=== PATIENT | female | born 1985 | race Caucasian/White ===

== ENCOUNTER → 2018-01-06 09:04 | Outpatient (CLI) | payer OTHER, SELFPAY ==
[2018-01-06 12:03] LABS: Hematocrit 37.2 % (37-47); Hemoglobin 12.5 g/dl (12.0-15.0); Mean Corp Hgb Conc 33.6 g/gl (32-36); Mean Corpuscular Hgb 32.5 pg (27.0-32.0); Mean Corpuscular Volume 96.6 fL (81-99); Mean Platelet Vol. 11.4 fl (6.2-12.0); Platelet Count 139 K/mm3 (150-450); RBC Distribution Width SD 44.1 fl (35.1-43.9); Red Blood Count 3.85 M/mm3 (4.2-5.4); Scan Indicated on CBC? Y/N NO; White Blood Count 7.3 K/mm3 (4.4-11.0)
[2018-01-06 12:07] LABS: Glucose Challenge Gest 1H 50g 106 mg/dL (70-140)
== END ==
PROVIDERS: Visit Provider Obstetrics & Gynecology
DX: Z34.83 Encounter for supervision of other normal pregnancy, third trimester (principal)
CPT/HCPCS: 36415; 82950; 85027

== ENCOUNTER → 2018-02-21 14:11 | Outpatient (CLI) | payer OTHER, SELFPAY ==
[2018-02-21 15:51] LABS: Platelet Count 144 K/mm3 (150-450)
[2018-02-21 18:30] LABS: Group B Strep DNA By PCR POSITIVE (Negative); Probe Check PASS
== END ==
PROVIDERS: Visit Provider Obstetrics & Gynecology
DX: Z36.85 Encounter for antenatal screening for Streptococcus B (principal)
CPT/HCPCS: 36415; 85049; 87653

== ENCOUNTER → 2018-03-22 14:46 | Outpatient (CLI) | payer OTHER, SELFPAY ==
[2018-03-22 15:19] LABS: ROM Internal Control Test YES-OK TO RESULT pt. (Internal QC)
[2018-03-22 15:20] LABS: ROM Patient Test POSITIVE (Negative)
== END ==
PROVIDERS: Visit Provider Obstetrics & Gynecology
DX: Z34.83 Encounter for supervision of other normal pregnancy, third trimester (principal)
CPT/HCPCS: 84112

== ENCOUNTER 2018-03-22 18:55 | Inpatient (IN) | payer OTHER, SELFPAY ==
[2018-03-22] MEDS: Lactated Ringers 1,000 ML 50 ML IV (19:34)
[2018-03-22 19:57] LABS: Hematocrit 39.3 % (37-47); Hemoglobin 13.2 g/dl (12.0-15.0); Mean Corp Hgb Conc 33.6 g/gl (32-36); Mean Corpuscular Hgb 31.7 pg (27.0-32.0); Mean Corpuscular Volume 94.5 fL (81-99); Mean Platelet Vol. 11.1 fl (6.2-12.0); Platelet Count 125 K/mm3 (150-450); RBC Distribution Width CV 13.6 % (11.6-14.6); RBC Distribution Width SD 46.7 fl (35.1-43.9); Red Blood Count 4.16 M/mm3 (4.2-5.4); White Blood Count 8.3 K/mm3 (4.4-11.0)
[2018-03-22 20:01] LABS: Scan Indicated on CBC? Y/N NO
[2018-03-22 20:16] VITALS: BMI 30.4
[2018-03-22] MEDS: Oxytocin 30 units/NS 500 ml 30 UNITS/500 ML IV.SOLN IV (22:44)
[2018-03-22] MEDS: Acetaminophen 325 MG Tablet PO (22:51)
[2018-03-23] MEDS: Lactated Ringers 1,000 ML 50 ML IV ×4 (01:10→18:26)
--- NOTE | 2018-03-23 07:16 | PCM.PN.OB ---
Subjective: Feeling contractions strongly now. Pitocin at 10mu/min Objective: Afeb VSS. FHR tracing Cat 1. - Physical Exam General: Alert, Oriented x3, Cooperative, No apparent distress Abdomen: Soft, Non Tender, Non-Distended, Gravid, Appropriate for Gestational Age, - - Palpable contractions present Extremities: No edema Neurological: Neuro grossly intact Psych/Mental Status: Normal Affect Comment: CE 01/22/ Weight: 172 lb Body Mass Index (BMI) 30.4 Laboratory Tests Past 24 Hrs 03/22/18 03/22/18 19:34 19:34 WBC 8.3 RBC 4.16 L Hgb 13.2 Hct 39.3 MCV 94.5 MCH 31.7 MCHC 33.6 RDW 13.6 RDW Differential 46.7 H Plt Count 125 L MPV 11.1 Blood Type O POSITIVE Antibody Screen NEGATIVE Medical Necessity - Tobacco Use Smoking Status: Never smoker Assessment/Plan IUPC placed to better monitor contraction pattern and strength. heart rate tracing reassuring. Continue pitocin. Watch for signs of chorioamnionitis as ruptured >24 hours. Ampicillin prophylaxis has been ordered. Watch labor progress.
--- NOTE | 2018-03-23 07:22 | PCM.PN.BLA ---
Progress Note LABOR PROGRESS NOTE Comfortable, replies contractions are mild. No complaints. Test dose of epidural just completed. AVSS GEN - NAD, AAO x 3 FHR 130, moderate variability, + accelerations, no decelerations TOCO 4/10 min SVE deferred, last exam /-3 A/P: 32yo @ 39.3wga with PROM, IOL on pitocin, TOLAC, Cat I FHR -Labor course reviewed, pitocin at 10mu/min as per Dr. Mohr - status reassuring -Will continue pitocin as tolerated by mother and fetus to adequacy, reviewed with patient and 24 hours pitocin induction without cervical change advisable prior to determining need for section for failed induction. Also discussed alternative for section sooner than that time given prior history of section. Discussed increased risk for infection given prolonged rupture of membranes, however, again, that alone is not indication for section in absence of other indications. Patient and report understanding, considering options. If desires to labor further, will plan for section approximately 10-11pm (24 hours after induction started) if no change.
--- NOTE | 2018-03-23 09:46 | PCM.PN.BLA ---
Progress Note LABOR PROGRESS NOTE Contractions becoming more intense and has more gushing of fluid. AVSS, breathing through contractions GEN - NAD, AAO x 3 FHR 130, moderate variability, + accelerations, no decelerations TOCO 5/10 min, MVU >200 SVE deferred A/P: 32yo @ 39 3/7wga in latent labor, TOLAC, Cat I FHR on pitocin -Maternal and statuses reassuring -Continue pitocin as tolerated by mother and fetus -Continue Ampicillin for prolonged rupture of membranes
[2018-03-23] MEDS: fentaNYL-bupivacaine (epidural) 100 ML BAG EPIDURAL (10:03)
[2018-03-23] MEDS: 0.9% Saline Lock 10 ML Syringe IV ×2 (16:45→22:45)
[2018-03-23] MEDS: Acetaminophen 325 MG Tablet PO (18:25)
[2018-03-23] MEDS: Methylergonovine 0.2 MG/ML Ampul IM (19:47)
[2018-03-23] MEDS: Oxytocin 30 units/NS 500 ml 30 UNITS/500 ML IV.SOLN 334 UNITS IV (19:47)
[2018-03-23] MEDS: Oxytocin 30 units/NS 500 ml 30 UNITS/500 ML IV.SOLN 167 UNITS IV (20:05)
--- NOTE | 2018-03-23 20:33 | PCM.OB.VAG ---
Vaginal Delivery Maternal Presentation: Active Labor Amniotic Membrane Rupture Type: Spontaneous at home Amniotic Fluid Description: Clear Final PRISCILLA: 03/27/18 Final PRISCILLA Source: US <20 weeks Gestational age: 39 Weeks and 3 Days Date of Procedure: 03/23/18 Pre-Operative Diagnosis: IUP, Post-Operative Diagnosis: IUP, Surgery/ Procedure Performed: Spontaneous Vaginal Delivery, Vacuum Assisted Vaginal Delivery Type of Anesthesia: Epidural Description of Procedure: Spontaneous vaginal delivery after of a viable female with Apgars of 8/9 with a normal three-vessel placenta and cord around the neck ?1 loose in a double set up in the room. No episiotomy. First-degree midline laceration and bilateral vaginal sulcal tears approximately custodial up the vagina all repaired with 3-0 repeat suture under epidural. Kiwi vacuum used ?4 gentle pulls from low outlet to expedite delivery of the head due to variable late decelerations and increasing tachycardia. No pop offs. Sponges okay. Delivery physician: Nilson Gonzalez MD. Presentation: Vertex Placental Delivery Description: Spontaneous Placenta Disposition: [facility] Cord Vessel Description: 3 Vessels Cord Gases drawn per routine: ABG Cord Entanglement: Around neck x 1, loose Estimated Blood Loss: 450 cc Infant A gender: Female (1 minute): 8 (5 minute): 9 Episiotomy Description: None Laceration: Midline, Perineal Extension/lac, Vaginal Extension/lac, 1st degree Medications given after delivery: IV Pitocin, IM Methergin Complications: None
--- NOTE | 2018-03-23 20:41 | OP.PCM_ITS ---
Vaginal Delivery Maternal Presentation: Active Labor Amniotic Membrane Rupture Type: Spontaneous at home Amniotic Fluid Description: Clear Final PRISCILLA: 03/27/18 Final PRISCILLA Source: US <20 weeks Gestational age: 39 Weeks and 3 Days Date of Procedure: 03/23/18 Pre-Operative Diagnosis: IUP, Post-Operative Diagnosis: IUP, Surgery/ Procedure Performed: Spontaneous Vaginal Delivery, Vacuum Assisted Vaginal Delivery Type of Anesthesia: Epidural Description of Procedure: Spontaneous vaginal delivery after of a viable female with Apgars of 8/9 with a normal three-vessel placenta and cord around the neck ?1 loose in a double set up in the room. No episiotomy. First-degree midline laceration and bilateral vaginal sulcal tears approximately fpc up the vagina all repaired with 3-0 repeat suture under epidural. Kiwi vacuum used ?4 gentle pulls from low outlet to expedite delivery of the head due to variable late decelerations and increasing tachycardia. No pop offs. Sponges okay. Delivery physician: Nilson Gonzalez MD. Presentation: Vertex Placental Delivery Description: Spontaneous Placenta Disposition: [facility] Cord Vessel Description: 3 Vessels Cord Gases drawn per routine: ABG Cord Entanglement: Around neck x 1, loose Estimated Blood Loss: 450 cc Infant A gender: Female (1 minute): 8 (5 minute): 9 Episiotomy Description: None Laceration: Midline, Perineal Extension/lac, Vaginal Extension/lac, 1st degree Medications given after delivery: IV Pitocin, IM Methergin Complications: None
--- NOTE | 2018-03-23 20:41 | PCM.DCVAG ---
Discharge Diet: No Restrictions Discharge Activity: May Shower, May Take a Tub Bath May resume sexual activity in: 4-6 weeks Additional Activity Instructions:: Nothing in the vagina for 4-6 weeks. You may return to work/school in 6 weeks. Call your doctor if you observe: Fever of 101 or Higher, Inability to urinate, Inability to have a bowel movement, Using more than one pad per hour Additional Instructions: If you experience any of the following, contact your healthcare provider. Bleeding that soaks a pad every hour for 2 hours Unrelieved incision or abdominal pain Swelling, redness, discharge or bleeding from your incision or episiotomy site Your incision begins to separate Problems urinating (including inability to urinate or burning while urinating). Visual changes Severe headache Flu-like symptoms Pain or redness in one of both of your breasts Pain, warmth, tenderness or swelling in your legs, especially the calf area Frequent nausea and vomiting Symptoms of depression or anxiety If you experience any of the following, call 911 or go to the nearest Emergency Room. Chest pain Problems breathing Seizure activity Partial or complete paralysis of a body part, slurred speech, weakness or drooping of the face, or a sudden inability to walk or hold your balance Allergies/Adverse Reactions: Allergies No Known Allergies Allergy (Verified 03/22/18 20:17) Medications to take at Discharge Tablet 1 PO DAILY 03/22/18 Probiotic PRN 03/22/18 Vitamin D3 PRN 03/22/18 Please Follow Up With: Kalie Mendez MD - [phone] When: Call to make an appointment with your doctor in 6 weeks. Primary Care Physician: Shira Esquivel NP-C [Primary Care Provider] -
--- NOTE | 2018-03-23 20:43 | DCINST_ITS ---
Discharge Diet: No Restrictions Discharge Activity: May Shower, May Take a Tub Bath May resume sexual activity in: 4-6 weeks Additional Activity Instructions:: Nothing in the vagina for 4-6 weeks. You may return to work/school in 6 weeks. Call your doctor if you observe: Fever of 101 or Higher, Inability to urinate, Inability to have a bowel movement, Using more than one pad per hour Additional Instructions: If you experience any of the following, contact your healthcare provider. * Bleeding that soaks a pad every hour for 2 hours * Unrelieved incision or abdominal pain * Swelling, redness, discharge or bleeding from your incision or episiotomy site * Your incision begins to separate * Problems urinating (including inability to urinate or burning while urinating) . * Visual changes * Severe headache * Flu-like symptoms * Pain or redness in one of both of your breasts * Pain, warmth, tenderness or swelling in your legs, especially the calf area * Frequent nausea and vomiting * Symptoms of depression or anxiety If you experience any of the following, call 911 or go to the nearest Emergency Room. * Chest pain * Problems breathing * Seizure activity * Partial or complete paralysis of a body part, slurred speech, weakness or drooping of the face, or a sudden inability to walk or hold your balance Allergies/Adverse Reactions: Allergies No Known Allergies Allergy (Verified 03/22/18 20:17) Medications to take at Discharge Tablet 1 PO DAILY 03/22/18 Probiotic PRN 03/22/18 Vitamin D3 PRN 03/22/18 Please Follow Up With: Kalie Mendez MD - [phone] When: Call to make an appointment with your doctor in 6 weeks. Primary Care Physician: Shira Esquivel NP-C [Primary Care Provider] -
[2018-03-24] VITALS: BP 117/55; PULSE 75; RESP 18; TEMP 36.9; O2SAT 97
[2018-03-24] MEDS: Ibuprofen 600 MG Tablet PO ×4 (00:19→20:28)
[2018-03-24 05:00] VITALS: BP 125/63; PULSE 75; RESP 18; TEMP 36.7
[2018-03-24 05:28] LABS: Hematocrit 31.1 % (37-47); Hemoglobin 10.4 g/dl (12.0-15.0); Mean Corp Hgb Conc 33.4 g/gl (32-36); Mean Corpuscular Volume 95.7 fL (81-99); Mean Platelet Vol. 11.1 fl (6.2-12.0); Platelet Count 115 K/mm3 (150-450); RBC Distribution Width CV 13.8 % (11.6-14.6); RBC Distribution Width SD 48.1 fl (35.1-43.9); Red Blood Count 3.25 M/mm3 (4.2-5.4); Scan Indicated on CBC? Y/N NO
--- NOTE | 2018-03-24 07:54 | PCM.PN.OB ---
Subjective: No issues overnight. She notes clusterfed overnight and is nursing well. Viridiana is sore, denies heavy lochia. Objective: AVSS - Physical Exam General: Alert, Oriented x3, Cooperative, No apparent distress HEENT: Atraumatic, Normocephalic Lungs: Clear to auscultation, Normal air movement Cardiovascular: Regular rate, Regular Rhythm, Normal S1, Normal S2 Abdomen: Soft, Non Tender, Non-Distended, - - Fundus firm and nontender at umbilicus, lochia moderate Extremities: No edema, No Calf Tenderness Neurological: Neuro grossly intact Psych/Mental Status: Normal Affect, Appropriate, Alert and oriented to time, place, person, mood and affect Vital Signs Temp Pulse Resp BP Pulse Ox 98.0 F 75 18 125/63 H 97 03/24/18 05:00 03/24/18 05:00 03/24/18 05:00 03/24/18 05:00 03/24/18 00:00 Oxygen Delivery Method Room Air Weight: 78.018 kg Body Mass Index (BMI) 30.4 Intake and Output for Last 24 Hours 03/22/18 03/23/18 03/24/18 23:59 23:59 23:59 Intake Total 4769 / 4769 1400 / 1400 Output Total 2450 / 2450 1400 / 1400 Balance 2319 / 2319 0 / 0 Laboratory Tests Past 24 Hrs 03/24/18 05:00 WBC 17.0 H RBC 3.25 L Hgb 10.4 L Hct 31.1 L MCV 95.7 MCH 32.0 MCHC 33.4 RDW 13.8 RDW Differential 48.1 H Plt Count 115 L MPV 11.1 Medical Necessity - Tobacco Use Smoking Status: Never smoker Assessment/Plan 32yo PPD#1 s/p Vacuum assisted doing well. -O positive - -Routine care
[2018-03-24] MEDS: Acetaminophen 500 MG Tablet 1000 MG PO (11:15)
[2018-03-24 13:37] VITALS: BP 113/44; PULSE 70; RESP 16; TEMP 36.7; O2SAT 97
[2018-03-24 18:00] VITALS: BP 112/44; PULSE 85; RESP 16; TEMP 37; O2SAT 96
[2018-03-24 20:30] VITALS: BP 120/64; PULSE 86; RESP 16; TEMP 37.2
[2018-03-25 02:05] VITALS: BP 108/61; PULSE 80; RESP 20; TEMP 36.9
[2018-03-25] MEDS: Acetaminophen 500 MG Tablet 1000 MG PO ×2 (02:16→14:11)
[2018-03-25 09:06] VITALS: BP 109/55; PULSE 66; RESP 16; TEMP 36.7; O2SAT 100
--- NOTE | 2018-03-25 10:45 | PCM.PN.OB ---
Subjective: Patient without complaints. Doing well. Minimal vaginal bleeding. Ready to go home. - Physical Exam Vital Signs AF, VSS Temp Pulse Resp BP Pulse Ox 98.0 F 66 16 109/55 L 100 03/25/18 09:06 03/25/18 09:06 03/25/18 09:06 03/25/18 09:06 03/25/18 09:06 Oxygen Delivery Method Room Air Weight: 172 lb Body Mass Index (BMI) 30.4 Intake and Output for Last 24 Hours 03/23/18 03/24/18 03/25/18 23:59 23:59 23:59 Intake Total 4769 / 4769 1400 / 1400 Output Total 2450 / 2450 1400 / 1400 Balance 2319 / 2319 0 / 0 Medical Necessity - Tobacco Use Smoking Status: Never smoker Assessment/Plan Doing well. Will release to home with routine instructions.
[2018-03-25] MEDS: Ibuprofen 600 MG Tablet PO (11:01)
[2018-03-25 13:24] VITALS: BP 115/61; PULSE 91; RESP 16; TEMP 36.7; O2SAT 99
== END 2018-03-25 14:45 | disposition home or self-care (01) | DRG 775 ==
PROVIDERS: Obstetrics & Gynecology; Admitting Provider Obstetrics & Gynecology; Family Provider Nurse Practitioner Family; PCP Nurse Practitioner Family; Visit Provider Obstetrics & Gynecology
DX: O34.219 Maternal care for unspecified type scar from previous cesarean delivery (principal); O99.824 Streptococcus B carrier state complicating childbirth; O42.12 Full-term premature rupture of membranes, onset of labor more than 24 hours following rupture; O76 Abnormality in fetal heart rate and rhythm complicating labor and delivery; O70.0 First degree perineal laceration during delivery; O69.81X0 Labor and delivery complicated by cord around neck, without compression, not applicable or unspecified; Z3A.39 39 weeks gestation of pregnancy; Z37.0 Single live birth
CPT/HCPCS: 59025; 59050; 85027; 86850; 86900; 99218; J7120; A4216; G0378; J0290

== ENCOUNTER → 2018-04-07 13:53 | Outpatient (CLI) | payer OTHER, SELFPAY | PROVIDERS: Family Provider Nurse Practitioner Family; PCP Nurse Practitioner Family; Visit Provider Obstetrics & Gynecology | DX: R30.0 Dysuria (principal); R52 Pain, unspecified | CPT/HCPCS: 87086; 87088 ==

== ENCOUNTER → 2018-05-15 15:46 | Outpatient (CLI) | payer OTHER, SELFPAY ==
[2018-05-15 17:49] LABS: Platelet Count 173 K/mm3 (150-450)
== END ==
PROVIDERS: Visit Provider Obstetrics & Gynecology
DX: D69.6 Thrombocytopenia, unspecified (principal)
CPT/HCPCS: 36415; 85049

== ENCOUNTER → 2020-07-15 | Outpatient (CLI) | payer OTHER, SELFPAY ==
[2020-07-18 16:30] LABS: HPV APTIMA, High Risk Negative (Negative)
== END | disposition home or self-care (01) ==
PROVIDERS: PCP Nurse Practitioner Family; Visit Provider Obstetrics & Gynecology
DX: Z12.4 Encounter for screening for malignant neoplasm of cervix (principal)
CPT/HCPCS: 87624; 88175; G0145

== ENCOUNTER → 2021-09-17 09:35 | Outpatient (CLI) | payer OTHER, SELFPAY ==
--- NOTE | 2021-09-17 09:38 | BI_ITS ---
MAMMOGRAPHY - BILATERAL DIAGNOSTIC REASON FOR EXAM: Female, 35 years old. Six-month history of a left breast lump at the central deep lateral aspect of the left breast. PERTINENT HISTORY: Non-contributory. TECHNIQUE: Digital bilateral breast [place] (3D mammographic acquisition) in the CC and MLO projections. 2-D mediolateral oblique (MLO) and craniocaudad (CC) views of both breasts were obtained. CAD: Full Field Digital Mammography with Computer Added Detection was performed. COMPARISON: None. Baseline examination. FINDINGS: Breast Composition: The breasts are heterogeneously dense, which may obscure small masses. I suspect a 1.3 cm x 0.9 cm well-defined nodule in the deep central lateral aspect of the left breast. This corresponds to the palpable abnormality. Correlation with ultrasound is recommended. No other significant abnormalities are identified. BI/DIAG MAMM W/CAD, BILAT IMPRESSION: I suspect a 1.3 cm x 0.9 cm well-defined nodule in the deep central lateral aspect of the left breast corresponding to the palpable abnormality. Correlation with ultrasound is recommended. ASSESSMENT CATEGORY: BIRADS Category 0: Incomplete. Need additional imaging evaluation. A letter regarding these results will be sent to the patient by the facility within 30 days. Approximately 10% of breast cancers are not detected by mammography. A normal mammogram should not delay biopsy of a clinically suspicious abnormality. Electronically Signed: Ho Garcia MD at 13:04 EDT , Service support ,
--- NOTE | 2021-09-17 09:38 | US_ITS ---
STUDY: ULTRASOUND BREAST - LEFT REASON FOR EXAM: Female, 35 years old. Abnormal screening mammogram. TECHNIQUE: Axial and longitudinal images of the LEFT breast were performed with a high resolution ultrasound transducer. # OF IMAGES: 19 COMPARISON: Comparison is made with prior mammogram done earlier today. FINDINGS: LEFT Breast: The palpable abnormality corresponds to a 1 cm x 1 cm x 0.8 cm slightly lobular hypoechoic solid nodule at the 4 o''clock position of the breast at 6 cm from the nipple. This corresponds to the palpable abnormality. This most likely represents a fibroadenoma although a biopsy recommended. US/Breast Limited Unilateral IMPRESSION: 1 mL thick) a 1 cm x 1 cm x 0.87 slightly lobular hypoechoic solid nodule at the 4 o''clock position of the breast at 6 from nipple. Biopsy is recommended. ASSESSMENT CATEGORY: BIRADS Category 4: Suspicious - Biopsy Should Be Considered. A letter regarding these results will be sent to the patient by the facility within 30 days. Electronically Signed: Ho Garcia MD at 14:38 EDT , Service support ,
== END ==
PROVIDERS: PCP Nurse Practitioner Family; Referring Provider Obstetrics & Gynecology; Visit Provider Obstetrics & Gynecology
DX: R92.8 Other abnormal and inconclusive findings on diagnostic imaging of breast (principal); N63.20 Unspecified lump in the left breast, unspecified quadrant
CPT/HCPCS: 76642; 77062; 77066; G0279

== ENCOUNTER → 2021-10-08 | Outpatient (CLI) | payer OTHER, SELFPAY ==
--- NOTE | 2021-10-08 | BRBX_PTH ---
PATIENT: [facility] LOC: [facility] U#:[id number] AGE/SX: 36/F ROOM: RE10/08/[address]: Dr. Lesley Mcmahon MD : 1985 BED: DIS: 10/08/2021 SPEC #: [id number] RECD: 10/08/21 15:00 STATUS: KENNETH YUKI #: [id number] INDY: 10/08/21 00:[address]: Lesley Mcmahon DEPT: SURGICAL PATHOLOGY RECD BY: Cabrera Barfield ENTERED: 10/09/21 12:29 SP TYPE: BREAST BX LEON DR: Shira Esquivel, PETRA Tissues: Left breast, NOS Procedures: Surgery Specimen Level IV HEADER OPERATION: Left breast biopsy PRE-OP DIAGNOSIS: Left breast mass TISSUE SUBMITTED: Left breast tissue 4 o?clock, 6 cm from nipple MICROSCOPIC DIAGNOSIS Left breast, 4 o?clock, 6 cm from nipple, core biopsy: Fibroadenoma. Negative for atypia or malignancy. See comment. LUIS:jose 10/12/2021 COMMENT Correlation with clinical, radiologic findings and appropriate follow up are necessary. MICROSCOPIC DESCRIPTION Slides are reviewed. GROSS DESCRIPTION Received in fixative is one container labeled with the patient's name and designated left breast. The specimen consists of multiple elongated fragments of de santiago-yellow fibroadipose tissue that in aggregate measure 1 x 0.4 x 0.1 cm. The entire specimen is submitted in one cassette. / LUIS:jose 10/09/21 TC:1 CPT: 78211
== END | disposition home or self-care (01) ==
LOC: LABSPEC 15:28
PROVIDERS: PCP Nurse Practitioner Family; Visit Provider Surgery
DX: N63.20 Unspecified lump in the left breast, unspecified quadrant (principal)
CPT/HCPCS: 88305

== ENCOUNTER 2022-02-03 11:06 | Outpatient (CLI) | payer OTHER, SELFPAY ==
[2022-02-03 12:45] LABS: Absolute Lymphocyte Count 1.77 X10^3/uL (0.83-4.51); Absolute Neutrophil Count 4.6 X10^3/uL (2.0-7.7); Basophil# 0.04 X10^3/uL; Basophil% 0.6 % (0-1); Eosinophil# 0.04 X10^3/uL; Eosinophils% 0.6 % (0-5); Hematocrit 40.6 % (37-47); Hemoglobin 14.2 g/dL (12.0-15.0); Lymphocyte # 1.77 X10^3/ul (0.83-4.51); Mean Corpuscular Hgb 32.1 pg (27.0-32.0); Mean Corpuscular Volume 91.6 fL (81-99); Mean Platelet Vol. 10.9 fl (6.2-12.0); Monocyte# 0.36 X10^3/uL; Monocyte% 5.3 % (0-10); NRBC Flagged by Analyzer 0 % (0-5); Neutrophil # 4.58 X10^3/uL (2.7-7.7); Neutrophil % 67.1 % (47-70); Platelet Count 201 K/mm3 (150-450); RBC Distribution Width CV 12.2 % (11.6-14.6); RBC Distribution Width SD 41.1 fl (35.1-43.9); Red Blood Count 4.43 M/mm3 (4.2-5.4); White Blood Count 6.8 K/mm3 (4.4-11.0)
[2022-02-03 12:59] LABS: Amphetamine Urine VISTA NEGATIVE (<1000 ng/mL); Barbiturate Urine VISTA NEGATIVE (< 200 ng/mL); Benzodiazepine Urine VISTA NEGATIVE (< 200 ng/mL); Cocaine Urine VISTA NEGATIVE (< 300 ng/mL); Color, Urine Yellow (Yellow); Ecstacy Urine VISTA NEGATIVE (< 500 ng/mL); Glucose, Dipstick Normal (Normal); Ketone-Dipstick Negative (Negative); Leukocyte Esterase-Dipstick Negative /ul (Negative); Methadone Urine VISTA NEGATIVE (< 300 ng/mL); Nitrite-Dipstick Negative (Negative); Occult Blood-Urine Negative /ul (Negative); PCP Urine VISTA NEGATIVE (< 25 ng/mL); Protein-Dipstick Negative (Negative); Specific Gravity, Urine 1.005 (1.002-1.030); THC Urine VISTA NEGATIVE (< 50 ng/mL); Urine Bilirubin Dipstick Negative (Negative); Urine Clarity Clear (Clear); Urine Urobilinogen Normal (Normal); Vista UDS pH Range 7
[2022-02-03 13:03] LABS: Thyroid Stim Hormone (TSH) 0.44 uIU/mL (0.358-3.74)
[2022-02-03 13:32] LABS: HIV - WCH Non-Reactive (Nonreactive); Hepatitis B Surface Antigen Non-Reactive (Nonreactive); Hepatitis C Antibody Non-Reactive (Nonreactive); Rubella IgG Reactive (Nonreactive); Syphilis Antibodies Non-reactive
[2022-02-04 22:07] LABS: Chlamydia By Nucleic Acid AMP Negative (Negative)
[2022-02-05 13:46] LABS: Gonococcus By Nucleic Acid AMP Negative (Negative)
== END 2022-02-03 23:59 | disposition home or self-care (01) ==
PROVIDERS: PCP Nurse Practitioner Family; Visit Provider Obstetrics & Gynecology
DX: Z34.81 Encounter for supervision of other normal pregnancy, first trimester (principal)
CPT/HCPCS: 36415; 80307; 81002; 84443; 85025; 86703; 86762; 86780; 86803; 87077; 87086; 87088; 87186; 87340; 87491; 87591

== ENCOUNTER 2022-03-03 11:48 | Outpatient (CLI) | payer OTHER, SELFPAY ==
[2022-03-03 12:55] LABS: Anion Gap 3 (5-15); BUN 13 mg/dL (7-18); Calcium,Total 8.8 mg/dL (8.5-10.1); Chloride 107 mmol/L (98-107); Creatinine, Serum 0.57 mg/dL (0.55-1.02); EST Glomerular Filtration Rate 128 mL/min (>60); Est Glom Filt Rate - Afr Amer 155 mL/min (>60); Glucose 86 mg/dL (74-106); Potassium 3.9 mmol/L (3.5-5.1); Sodium Level 138 mmol/L (136-145)
== END 2022-03-03 23:59 | disposition home or self-care (01) ==
LOC: WOBLAB 11:50
PROVIDERS: PCP Nurse Practitioner Family; Visit Provider Obstetrics & Gynecology
DX: R00.2 Palpitations (principal); R19.7 Diarrhea, unspecified
CPT/HCPCS: 36415; 80048

== ENCOUNTER → 2022-04-28 | Outpatient (CLI) | payer OTHER, SELFPAY | END | disposition home or self-care (01) | LOC: LABSPEC 12:04 | PROVIDERS: PCP Nurse Practitioner Family; Visit Provider Obstetrics & Gynecology | DX: O23.592 Infection of other part of genital tract in pregnancy, second trimester (principal); O99.891 Other specified diseases and conditions complicating pregnancy; R30.0 Dysuria; N76.0 Acute vaginitis | CPT/HCPCS: 87077; 87086; 87088; 87186 ==

== ENCOUNTER 2022-09-12 06:25 | Inpatient (IN) | payer OTHER, SELFPAY ==
[2022-09-12] VITALS (65 sets, daily range): BP systolic 125–163; BP diastolic 61–92; PULSE 44–103; TEMP 36.1–37.3; O2SAT 82–100; BMI 32.1
[2022-09-12] MEDS: Lactated Ringers 1,000 ML 50 ML IV (06:45)
[2022-09-12 06:58] LABS: Absolute Lymphocyte Count 1.44 X10^3/uL (0.83-4.51); Absolute Neutrophil Count 6.7 X10^3/uL (2.0-7.7); Basophil# 0.02 X10^3/uL; Basophil% 0.2 % (0-1); Eosinophil# 0.08 X10^3/uL; Eosinophils% 0.9 % (0-5); Hematocrit 37.7 % (37-47); Lymphocyte # 1.44 X10^3/ul (0.83-4.51); Lymphocyte % 16.1 % (19-41); Mean Corp Hgb Conc 34.5 g/dL (32-36); Mean Corpuscular Hgb 32.3 pg (27.0-32.0); Mean Corpuscular Volume 93.8 fL (81-99); Mean Platelet Vol. 12.2 fl (6.2-12.0); Monocyte# 0.62 X10^3/uL; Monocyte% 6.9 % (0-10); NRBC Flagged by Analyzer 0 % (0-5); Neutrophil # 6.71 X10^3/uL (2.7-7.7); Neutrophil % 75.2 % (47-70); Platelet Count 143 K/mm3 (150-450); RBC Distribution Width CV 12.6 % (11.6-14.6); RBC Distribution Width SD 43.9 fl (35.1-43.9); Red Blood Count 4.02 M/mm3 (4.2-5.4); White Blood Count 8.9 K/mm3 (4.4-11.0)
[2022-09-12] MEDS: LACTATED RINGERS 500 ML 999 ML IV (07:00)
--- NOTE | 2022-09-12 07:06 | PCM.HP.OB ---
HPI - General General Date of Admission: 09/12/22 Date of Service: 09/12/22 Chief Complaint: contractions HPI Narrative [facility], is a 36 F at 39w6d who presents with painful ctx's at 3 cm dilated. No vb or lof. Good FM. She denies a ORTEGA or vision changes. She offers no complaints today other than painful ctx's. Maternal Data Information Final PRISCILLA: 09/13/22 Final PRISCILLA Source: LMP PFSH PFSH Medical History Disorder of tear duct system Home Medications Tablet 1 PO DAILY 03/22/18 [History Last Taken 03/22/18 08:30] Vitamin D3 PRN vitamin 03/22/18 [History Last Taken 03/22/18 08:30] omega-3 fatty acids 1,000 mg capsule (Fish Oil Concentrate) 1,000 mg PO DAILY 10/08/21 [History Last Taken Unknown] Allergy/AdvReac Type Severity Reaction Status Date / Time No Known Allergies Allergy Verified 10/08/21 13:16 Family History Sister Hypertension Heart disease Father Heart disease CAD (coronary artery disease) Brother Heart disease Grandmother Lupus Surgical History History of surgery on arm S/P section S/P shoulder surgery Social History Smoking Status: Never smoker alcohol intake: never History Elective abortions Hx Para 2 Spontaneous abortions Hx # Term Pregnancies Ectopic pregnancies Hx # Pregnancies Multiple births # of living children Addt'l History: H/o 1 section followed by a successful - vacuum assisted with sulcal tears NST FHR Rate Baby A FHR Category:: Category I Uterine Activity:: Ctx's q 3-4 min Vital Signs Vital Signs Vital Signs: 09/12/22 06:06 09/12/22 06:06 Pulse Rate 71 Blood Pressure 140/85 H BP Systolic 140 BP Diastolic 85 Physical Exam Const alert and no apparent distress Constitutional Narrative: Uncomfortable with ctx's Labs Labs Labs: Blood Type O POSITIVE Antibody Screen NEGATIVE Hct 37.7 % (37-47) Hgb 13.0 g/dL (12.0-15.0) Syphilis Total Ab Non-reactive Rubella IgG Antibody Reactive (Nonreactive) Hep Bs Antigen Non-Reactive (Nonreactive) Chlamydia DNA ([place]ATASHA) Negative (Negative) Neisseria gonorrhoeae DNA ([place]HA) Negative (Negative) HIV 1&2 Antibody Non-Reactive (Nonreactive) Glucose 1 Hr 50 gm 106 mg/dL (70-140) Group B Strep DNA POSITIVE (Negative) H Rhogam given: No Assessment & Plan (1) Uterine contractions: (2) History of : (3) History of section: (4) 39 weeks gestation of : PLAN: Admit to L&D for routine intrapartum care. Pt had GBS bacteruria early in the at outside facility - will treat with PCN. Epidural for pain control. Discussed r/b of TOLAC vs repeat section, and she desires to proceed with TOLAC. H/o 1 successful and baby AGA on third trimester growth US. Covid on admission. Category 1 tracing. Will AROM when able. Anticipate vaginal delivery. (5) Advanced maternal age (AMA) in :
[2022-09-12] MEDS: fentaNYL-bupivacaine (epidural) 100 ML BAG EPIDURAL ×3 (08:11→16:51)
--- NOTE | 2022-09-12 10:23 | PCM.PN.BLA ---
Progress Note Pt doing well. Comfortable with epidural. She offers no complaints. Assessment & Plan Assessment/Plan (1) 39 weeks gestation of : PLAN: Cvx /-2, head well applied. AROM performed in usual fashion with return of clear fluid. IUPC and FSE placed. Category 1 tracing. (2) Advanced maternal age (AMA) in : (3) History of : (4) Uterine contractions:
[2022-09-12] MEDS: Penicillin G 3,000,000 Units 50 ML 100 UNITS IV ×2 (10:54→16:51)
[2022-09-12] MEDS: Lactated Ringers 1,000 ML 200 ML IV ×2 (12:25→17:50)
[2022-09-12] MEDS: Acetaminophen 500 MG Tablet PO (12:29)
--- NOTE | 2022-09-12 13:45 | PN_ITS ---
Progress Note Pt feeling pressure with ctx's. Assessment & Plan Assessment/Plan (1) History of : (2) History of section: (3) 39 weeks gestation of : PLAN: Cvx now /0 station. FHT 145/mod rashida/+accels/+mostly early decels with occasional late decels. [place] with ctx's q 3-4 min. Putting pt in hands and knees position. Anticipate delivery soon. (4) Advanced maternal age (AMA) in : (5) Uterine contractions:
--- NOTE | 2022-09-12 14:11 | PCM.PN.BLA ---
Progress Note Pt just out of hands and knees. RN at bedside. Comfortable with epidural but still feeling pressure with ctx's. Assessment & Plan Assessment/Plan (1) Uterine contractions: (2) History of : (3) History of section: (4) 39 weeks gestation of : PLAN: Cvx 9/100/0, bloody show. Continue position changes. Making quick cervical change. FHT 145/mod rashida/+accels/+early and variable decels. Anticipate vaginal delivery shortly. (5) Advanced maternal age (AMA) in :
--- NOTE | 2022-09-12 18:11 | PCM.PN.BLA ---
Progress Note Pt doing well. Not feeling constant pressure yet. Assessment & Plan Assessment/Plan (1) History of : (2) Uterine contractions: (3) History of section: (4) 39 weeks gestation of : PLAN: - Cvx 9.5/100/0. FHT reassuring. [place] with ctx's q 2-3 min. Unable to reduce anterior lip of the cervix and some swelling noted. Will give 1 dose of Benadryl and re check in 30 min. Discussed w/ pt if she remains 9 cm for 4 hours would recommend a section for arrest of descent (5) Advanced maternal age (AMA) in :
[2022-09-12] MEDS: DiphenhydrAMINE 50 MG/ML Syringe IV (18:13)
[2022-09-12] MEDS: Oxytocin 15 Units/NS 250ml 15 UNITS/250 ML IV.SOLN 83 UNITS IV (19:59)
[2022-09-12] MEDS: Oxytocin 10 UNITS/ML Vial IM (19:59)
--- NOTE | 2022-09-12 20:40 | OP.PCM_ITS ---
Problems Associated Problem List Diagnoses (1) History of : (2) History of section: (3) 39 weeks gestation of : (4) Advanced maternal age (AMA) in : Report of Operation Date of Procedure: 09/12/22 Pre-Operative Diagnosis: 39 week gestation, labor, TOLAC, AMA Post-Operative Diagnosis: As above Surgery/Procedure Performed:: VAVD Description of Surgical Findings:: Patient presented in labor at term. Discussed r/b/a of TOLAC vs section and she desired a TOLAC. Patient was 9 cm for 2 hours. Discussed with pt when she was 9 cm option for a section as labor was progressing well, and then labor was still progressing yet slower than anticipated. Discussed if she was 9 cm for 4 hours would recommend a section for failure to progress. She was then 9.5 cm for 2 hours with a swollen anterior lip of the cervix. After Benadryl was given the anterior lip of the cervix was no longer swollen and very easily reduced. The patient then began pushing. Good maternal effort. After less than 1 hour of pushing, maternal exhaustion was noted. She requested a vacuum assisted vaginal delivery due to exhaustion. Discussed risks of a vacuum as sisted vaginal delivery including but not limited to scalp laceration, cephalohematoma, subgaleal hematoma, intracranial hemorrhage. Discussed alternative of a vacuum being a section. The patient provided consent for a vacuum assisted vaginal delivery, and desired to proceed given her exhaustion. Surgeon: Lucy Simms Type of Anesthesia: Epidural Special Medications: None Specimen's removed: Placenta Drains: [place] Estimated Blood Loss (mL): 100 Fluids Replaced: N/A Description of Procedure: Bladder was drained. Patient was comfortable with epidural. Infant in CHRIS pos ition and +2 station. Cvx 10/100/+2. Consent obtained. The vacuum was placed in usual fashion in front of the posterior fontanelle, and correct position was confirmed digitally. With the next contraction, the vacuum was inflated and gentle downward pressure was used with good maternal effort and pushing. The contraction ended and the vacuum was released. With the next contraction, the vacuum was reapplied and the baby was delivered to +4 station and the vacuum was removed. The vacuum was used for a total of 2 pulls, and 0 pop offs. The baby's head was then delivered. A 30 second delay in delivery of the baby's anterior shoulder was noted. Staff was notified of a shoulder dystocia and physician on back up was called. The patient was placed in McRobert's maneuver. The posterior shoulder was attempted to be delivered, and unsuccessful. Next the Hernandes maneuver was performed with delivery of the anterior shoulder, followed by posterior shoulder and the body of the infant. The shoulder dystocia was 45 seconds in length. The VFI was placed on maternal abdomen and cord was clamped and cut immediately. Cord gases and cord blood was obtained. The placenta was delivered with gentle fundal massage. The placenta was noted to be intact and normal appearing with a 3 VC. The uterus was explored x 1 and no retained placenta or membranes were noted. The uterine incision was palpated to be intact . The fundus was firm and bleeding hemostatic. Cervix and vagina were then inspected. A 1st degree vaginal laceration was repaired using 3-0 Vicryl in usual fashion. Sponge and needle counts were correct. Apgars were 8, 9. Grafts/Implants Used: None Complications None Admit VTE Documentation VTE Present on Admission: No
[2022-09-13 02:55] VITALS: BP 135/90; PULSE 77; RESP 16; TEMP 36.4
[2022-09-13] MEDS: Acetaminophen 500 MG Tablet 1000 MG PO (04:06)
[2022-09-13 04:08] VITALS: BP 125/64; PULSE 68
[2022-09-13 08:45] VITALS: BP 125/76; PULSE 68; RESP 16; TEMP 36.1
--- NOTE | 2022-09-13 08:51 | PCM.PN.OB ---
Subjective Subjective Doing well per patient and nursing staff. Ambulating and taking PO without difficulty. Voiding and passing flatus. Pain controlled. , services for assistance. Denies headache, visual changes, chest pain, shortness of breath, leg pain or increased bleeding. Lochia normal. Objective Data Objective Data Vital Signs: Vital Signs Temp Pulse Resp BP Pulse Ox O2 Del Method 97.6 F L 68 16 125/64 H 97 Room Air 09/13/22 02:55 09/13/22 04:08 09/13/22 02:55 09/13/22 04:08 09/12/22 21:55 09/13/22 02:55 Oxygen Delivery Method Room Air Weight: 181 lb 3.2 oz Body Mass Index (BMI) 32.1 Intake & Output: Intake and Output for Last 24 Hours 09/11/22 09/12/22 09/13/22 23:59 23:59 23:59 Intake Total 3350.83 / 3350.83 Output Total 700 / 700 1100 / 1100 Balance 2650.83 / 2650.83 -1100 / -1100 Lab / Micro Data Result Diagrams: 09/12/22 06:45 Micro: Microbiology 09/12/22 06:45 Nasal Secretion SARS-CoV-2 Antigen (Rapid) - Final ROS Constitutional Constitutional: Reports systems reviewed and no addt'l complaints, except as documented; Denies headache(s) Eyes Eyes: Denies acute decrease in peripheral vision, blurry vision or change in vision ENT HEENT: Reports systems reviewed and no addt'l complaints, except as documented Cardiovascular Cardiovascular: Denies chest pain or dizziness Respiratory/Chest Respiratory/Chest: Denies cough, dyspnea, dyspnea on exertion, shortness of breath at rest or shortness of breath with exertion Gastrointestinal Gastrointestinal: Denies abdominal pain, diarrhea, nausea or vomiting Genitourinary Genitourinary: Denies abdominal discomfort Musculoskeletal Musculoskeletal: Denies limited range of motion Integumentary Integumentary: Reports systems reviewed and no addt'l complaints, except as documented Neurologic Neurologic: Reports systems reviewed and no addt'l complaints, except as documented Psychiatric Psychiatric: Reports systems reviewed and no addt'l complaints, except as documented Endocrine Endocrinology: Reports systems reviewed and no addt'l complaints, except as documented Hematologic/Lymphatic Hematologic/Lymphatic: Reports systems reviewed and no addt'l complaints, except as documented Allergic/Immunologic Allergic/Immunologic: Reports systems reviewed and no addt'l complaints, except as documented Physical Exam Const alert and oriented x3 General Appearance: cooperative Orientation / Consciousness: awake, oriented to person, oriented to place and oriented to time Exam Limitations: no limitations HEENT normocephalic Head and Scalp: normal to inspection, normocephalic and atraumatic Face and Sinus: normal facial exam Eyes General Eye: normal appearance of both eyes Neck full ROM Chest Chest: symmetrical chest wall rise Resp normal respiratory effort and normal air movement Auscultation: clear to auscultation bilaterally Cardio regular rate, regular rhythm, S1 normal heart sound, S2 normal heart sound, no murmurs, no rub, no gallops and no clicks GI normal to inspection, nondistended, normoactive bowel sounds and non-tender appearance of the vagina normal Bladder / Kidney Exam: no CVA tenderness Back/Spine normal ROM Extremity normal to inspection and full ROM Skin no rashes or lesions noted Neuro oriented x3 and moves all extremities Sensorium / Orientation: awake, alert and oriented to person Motor Exam: clonus absent Deep Tendon Reflexes: Rt Patellar (L4): 2+ and Lt Patellar (L4): 2+ Assessment & Plan (1) Vaginal after : (2) Shoulder dystocia during labor and delivery: PLAN: Plan 1) Routine PP care 2) services 3) vitals stable 4) Pain controlled 5) Planning D/C home tomorrow
[2022-09-13 12:00] VITALS: BP 126/69; PULSE 68; RESP 16; TEMP 36.2
[2022-09-13] MEDS: Ibuprofen 600 MG Tablet PO (15:12)
[2022-09-13 15:30] VITALS: BP 127/70; PULSE 71; RESP 71; TEMP 36.6
[2022-09-13 20:50] VITALS: BP 130/82; PULSE 67; RESP 16; TEMP 36.4; O2SAT 97
[2022-09-14 02:30] VITALS: BP 121/67; PULSE 54; RESP 16; TEMP 36.4; O2SAT 98
[2022-09-14] MEDS: Acetaminophen 500 MG Tablet 1000 MG PO (02:42)
[2022-09-14 08:00] VITALS: BP 134/88; PULSE 60; RESP 18; TEMP 36.4; O2SAT 97
--- NOTE | 2022-09-14 09:07 | PCM.PN.OB ---
Subjective Subjective Patient seen at bedside. Ambulating in bathroom. Voiding without difficulty. with minimal support. Has not chosen name for baby. Lochia moderate. Taking Ibuprofen PO as needed for cramping/pain. Possible discharge home today later- baby has increased bilirubin level. Objective Data Objective Data Vital Signs: Vital Signs Temp Pulse Resp BP Pulse Ox O2 Del Method 97.5 F L 54 L 16 121/67 H 98 Room Air 09/14/22 02:30 09/14/22 02:30 09/14/22 02:30 09/14/22 02:30 09/14/22 02:30 09/14/22 02:30 Oxygen Delivery Method Room Air Weight: 181 lb 3.2 oz Body Mass Index (BMI) 32.1 Intake & Output: Intake and Output for Last 24 Hours 09/12/22 09/13/22 09/14/22 23:59 23:59 23:59 Intake Total 3350.83 / 3350.83 Output Total 700 / 700 1100 / 1100 Balance 2650.83 / 2650.83 -1100 / -1100 Lab / Micro Data Result Diagrams: 09/12/22 06:45 Micro: Microbiology 09/12/22 06:45 Nasal Secretion SARS-CoV-2 Antigen (Rapid) - Final ROS Eyes Eyes: Denies blurry vision, change in vision or spots in vision ENT HEENT: Denies dizziness or headache(s) Cardiovascular Cardiovascular: Denies abdominal pain, chest pain or dyspnea Respiratory/Chest Respiratory/Chest: Denies cough, dyspnea, shortness of breath at rest or shortness of breath with exertion Gastrointestinal Gastrointestinal: Denies abdominal pain, diarrhea or vomiting Genitourinary Genitourinary: Denies change in urinary stream, difficulty urinating or dysuria Musculoskeletal Musculoskeletal: Reports none Integumentary Integumentary: Denies rash Neurologic Neurologic: Denies dizziness, headache(s), memory loss or weakness Physical Exam Const alert and no apparent distress General Appearance: cooperative and comfortable Exam Limitations: no limitations HEENT normocephalic Eyes General Eye: normal appearance of both eyes Neck full ROM General: normal visual inspection Chest Chest: symmetrical chest wall rise Resp normal respiratory effort and normal air movement Effort and Inspection: symmetric chest movement Auscultation: clear to auscultation bilaterally Cardio regular rate and regular rhythm GI normal to inspection, nondistended, normoactive bowel sounds Back/Spine normal ROM Extremity full ROM and no calf tenderness General Extremity: normal exam except as noted Skin no rashes or lesions noted Neuro CN's II-XII intact bilaterally Psych mental status grossly normal Assessment & Plan (1) Vaginal after : (2) Shoulder dystocia during labor and delivery: (3) Care and examination of lactating mother: PLAN: Plan PPD 1 Routine care Pain control support Anticipate discharge home later today or tomorrow
[2022-09-14 14:00] VITALS: BP 118/82; RESP 20; TEMP 36.4; O2SAT 96
--- NOTE | 2022-09-14 15:41 | CASEMGMT ---
Social Work Brief Assessment Labor and Delivery Unit Patient Address: [address] [place] [address] , [place] [address] Phone number: [phone] Date of Referral/Notification: 09/14/2022 Time of Referral: [phone] Referred By: Carmelita Dick CNM Date of Intervention: 09/14/2022 Time of Intervention: Approximately 5016-0183 Reason for Referral: Traumatic , mother of baby (MOB) concerned about depression Informant: Medical record and mother of baby (CHAY) Viridiana Hawk History: CHAY is a 36-year-old female, to the father of baby (FOB) Ari Hawk. MOB denied any safety or domestic violence concerns upon admission, and no indication of concerns during social work assessment. CHAY and FOB have 3 children together: Chris (July 2015), Justyna Hawk (03/23/2018), baby girl likely to be named Jillian Hawk (09/12/2022). care started at [facility] with a late transfer of care to [facility] after MOB's primary OB changed practices. CHAY is college-educated. Currently is a oanm-wl-yome mother. FOB works as a automotive engineering teacher at an elementary school. CHAY denies any substance use issues, and reports has never tried alcohol. MOB endorses anxiety since childhood, starting around the age of 4, after the MOB's brother became sick for several years and eventually at the age of 6. Positive for childhood trauma in light of the CHAY's brother dying. MOB indicates poor experiences with each of her children, and likely depression after the last 2 births, around the time that CHAY would stop breast-feeding. No reports or endorsement of any history of SI, and discussed at times worry about not being present for children. CHAY reports she has tried Wellbutrin in the past for about 8 weeks but this did not help. Has been through individual and family counseling in the past and reports this has been a good experience. Most recently has been seeing Sunil through [facility]. Reports has also been to [facility] in [place] in the past. MOB reports alcoholism runs in the family and possible depression/anxiety. No endorsement of any bipolar disorder. MOB reports her daughters experience anxiety and the FOB was recently diagnosed with adult ADHD and started on medication. Assessment: Met with MOB in room, introducing to self and social work role. Upon director social welfare entering the room, MOB up and moving around in room, immediately telling this contract writer that is cleaning the room due to being alone and and wanting to distract her mind. MOB cooperative, pleasant, and willing to speak with this contract writer. MOB gave expansive answers and tangential in conversation, though directable. Anxious mood, good eye contact, periodically teary-eyed. Affect within normal range. MOB spent much time talking about history of depression and anxiety, and trauma history from childhood and difficult birthing experiences. Much supportive listening, reflection and emotional support provided to the MOB. Strongly encouraged MOB to keep up with counseling, reviewing risk for mood and anxiety disorders and psychoeducation about this topic. MOB did talk about concern that not bonding in the same way and has had with prior children, though this contract writer did observe MOB to be attentive to the baby, talk to the baby and smiled at the baby. Observed MOB to handle the baby calmly and gently, breast-feeding the baby. MOB's interactions appropriate and appearing relaxed and taking care of the baby. Discussed bonding can be different with each child, but that if MOB still feels a disconnect after a period of time this would definitely be something to discuss and explore with medical providers and counselors. The FOB arrived to the room near the end of conversation, and participated appropriately in conversation. FOB presented as supportive and encouraging of MOB to take time for self-care. MOB reports that have all necessary supplies to care for the infant including safe sleep space, no concerns with housing or transportation, and reports to have support from the FOB and MOB's parents. His family does have friends and are part of a yazdanism community which MOB reports is a good support. MOB verbally agreed to continue with counseling. Accepted resource packet on mood and anxiety disorders. Educated to [facility] behavioral health program as an alternative/supplements to individual counseling that MOB has been established with thus far. MOB excepted a brochure on this program in case needed in the future. Plan: MOB and will discharge home when ready. FOB present in be supported at home going. Resource information provided on mood and anxiety disorders including online supports, reading, and counseling. No further needs requested or indicated. -MARSHA Rankin, ROC *This note was generated with [employer] software. It may contain incorrect words, spelling, and punctuation that were not noted in review of the chart prior to signing*
--- NOTE | 2022-09-14 18:23 | PCM.PN.BLA ---
Progress Note Patient seen at bedside. She is desiring discharge home. Patient was seen by social work today due to feelings of anxiety and depression. She was concerned because she had not named her daughter and felt like she was not bonding with her like she did with her previous children. Patient seeing counselor at the counseling center in [place]. She has plans to make appointment once home. She denies any current medications. She denies any current SI/HI or any history of this. Patient has several resource handouts. Discussed placing consult to [facility] women's behavioral health and patient agrees with plan of care. She is aware to follow up in office at 2 weeks or sooner if she feels needing. present and good support system. Assessment & Plan Assessment/Plan (1) Care and examination of lactating mother: (2) Vaginal after : PLAN: Plan D/C home with follow up in office Consult to women's behavioral health services
--- NOTE | 2022-09-14 18:29 | PCM.DC ---
Discharge Instructions Diet Discharge Diet: No restrictions Activity Discharge Activity: Return to Normal Activity May resume sexual activity in: 6-8 weeks Weight Bearing Status: Weight bearing as tolerated Dressing / Incision Call your doctor if you observe: Fever of 101 or Higher, Inability to urinate, Inability to have a bowel movement, Using more than 1 pad per hour, Shortness of breath, Dizziness, Chest pain, Calf discomfort and Uncontrolled pain Follow Up Care Please Follow Up With: Lucy Simms DO When: 10 days-2 weeks post Test Results: Test results from this visit will be discussed in further detail at your follow-up appointment, if applicable. Discharge Plan Admission Admit Date/Time: 09/12/22 06:25 Primary Reason for Your Visit: Labor and Delivery Attending Provider: Lucy Simms Primary Care Provider: Shira Esquivel NP Discharge Orders/Prescriptions Prescriptions: No Action omega-3 fatty acids [Fish Oil Concentrate] 1,000 mg capsule 1,000 mg PO DAILY Tablet 1 PO DAILY Vitamin D3 PRN (Reason: vitamin) Referrals / Follow Up: Shira Esquivel NP, [employer]ACHINE [employer]PERATOR[employer] [Primary Care Provider] - Disposition Disposition (needs filled in before D/C Order can be placed): Home, Self Care
== END 2022-09-14 20:30 | disposition home or self-care (01) | DRG 807 ==
LOC: WPOUT 06:29 → WP 06:29
PROVIDERS: Admitting Provider Obstetrics & Gynecology; PCP Nurse Practitioner Family; Visit Provider Obstetrics & Gynecology
DX: O34.219 Maternal care for unspecified type scar from previous cesarean delivery (principal); Z37.0 Single live birth; O32.4XX0 Maternal care for high head at term, not applicable or unspecified; O66.0 Obstructed labor due to shoulder dystocia; O75.81 Maternal exhaustion complicating labor and delivery; O70.0 First degree perineal laceration during delivery; O76 Abnormality in fetal heart rate and rhythm complicating labor and delivery; Z3A.39 39 weeks gestation of pregnancy; Z20.822 Contact with and (suspected) exposure to COVID-19
CPT/HCPCS: 59050; 85025; 86850; 86900; 86901; 87426; 99218; J7120; G0378

== ENCOUNTER 2023-01-02 10:05 | Emergency (ER) | payer OTHER, SELFPAY ==
[2023-01-02 10:05] VITALS: BP 134/80; PULSE 89; RESP 18; TEMP 36; O2SAT 100; BMI 26.5
--- NOTE | 2023-01-02 10:23 | EX.ED.DYSGE1 ---
HPI <VICKIE Cleary - Last Filed: 01/02/23 11:06> History of Present Illness Chief Complaint: Allergic Reaction Narrative Narrative: 37-year-old female states 4 days ago she developed a rash. She noticed small red bumps scattered across her body that enlarged and became itchy. She tried Benadryl and Claritin with little relief. She denies any new exposures. About a month ago she completed antibiotics for mastitis. Otherwise she just takes and [id number] vitamins. She otherwise feels well no recent fever or illness. She had similar symptoms a couple years ago when she had mono. [facility] <VICKIE Cleary - Last Filed: 01/02/23 11:06> [facility] Medical History (Updated 01/02/23 @ 11:02 by VICKIE Cleary) Advanced maternal age (AMA) in Anxiety Care and examination of lactating mother Disorder of tear duct system Shoulder dystocia during labor and delivery Vaginal after Home Medications Tablet 1 PO DAILY 03/22/18 [History Last Taken 03/22/18 08:30] Vitamin D3 PRN vitamin 03/22/18 [History Last Taken 03/22/18 08:30] omega-3 fatty acids 1,000 mg capsule (Fish Oil Concentrate) 1,000 mg PO DAILY 10/08/21 [History Last Taken Unknown] omeprazole 40 mg capsule,delayed release 40 mg PO DAILY #14 caps 12/15/22 [Rx Last Taken Unknown] prednisone 20 mg tablet 40 mg PO DAILY 6 days #12 tabs 01/02/23 [Rx Last Taken Unknown] triamcinolone acetonide 0.1 % topical cream 1 applic topical DAILY #15 grams 01/02/23 [Rx Last Taken Unknown] Allergy/AdvReac Type Severity Reaction Status Date / Time No Known Allergies Allergy Verified 01/02/23 10:05 Family History Sister Hypertension Heart disease Father Heart disease CAD (coronary artery disease) Brother Heart disease Grandmother Lupus Surgical History History of section History of surgery on arm S/P section S/P shoulder surgery Social History Smoking Status: Never smoker alcohol intake: never ROS <VICKIE Cleary - Last Filed: 01/02/23 11:06> ROS ED ROS Narrative Constitutional: Negative for fever, chills, malaise. CVS: Negative for palpitations, chest pain. Respiratory: Negative for shortness of breath, cough. GI: Negative for abdominal pain, nausea, vomiting. : Negative for dysuria. Neuro: Negative for headache. Skin: Positive for rash. Musc: Negative for joint pain, swelling. Heme: Negative for easy bruising, bleeding, lymphadenopathy. EXAM <VICKIE Cleary - Last Filed: 01/02/23 11:06> Physical Exam Narrative Exam Narrative: CONST: Patient sitting in no acute distress. EYES: Normal inspection. ENT: Normal inspection, moist mucous membrane, no mucosal lesions. NECK: Normal inspection. RESP: No respiratory distress, CTAB. CVS: Regular rate and rhythm, no murmur, no gallop. SKIN: Scattered rash mainly underneath both breasts and in thigh folds that are round erythematous patches that become confluent with slight central clearing. She has several of these scattered across both forearms extending onto the palms. No lesions on soles. There is no vesicles or bullae, no drainage, no break in the skin. EXTREMITIES: Normal appearance, no pedal edema. NEURO: Oriented x4. PSYCH: Normal affect. Const Vital Signs: 01/02/23 10:05 Temperature 96.8 F L Temperature Source Temporal Pulse Rate 89 Respiratory Rate 18 Blood Pressure 134/80 H Blood Pressure Mean 98 Pulse Ox 100 Oxygen Delivery Method Room Air <Dr. Bernardino Blackmon MD - Last Filed: 01/02/23 11:10> Physical Exam Const Vital Signs: 01/02/23 10:05 Temperature 96.8 F L Temperature Source Temporal Pulse Rate 89 Respiratory Rate 18 Blood Pressure 134/80 H Blood Pressure Mean 98 Pulse Ox 100 Oxygen Delivery Method Room Air MDM <VICKIE Cleary - Last Filed: 01/02/23 11:06> MDM MDM Narrative Medical decision making narrative: History was gathered from the patient and her spouse. Patient has an itchy red rash scattered across her body. There are round red patches with slight central clearing and under her breasts and in her groin folds they become confluent. It is very pruritic and appears consistent with urticaria. Her exam and vitals are otherwise normal so there is no concern for anaphylaxis. There are no mucosal lesions and no skin sloughing so I do not think this is TEN or SJS. It is not consistent with cellulitis or erysipelas. I prescribed topical triamcinolone and recommended continuing Benadryl. We discussed the use of prednisone and she would like a prescription to hold onto in case it gets worse. She will need to stop breast-feeding and use formula if she takes oral steroids. She has follow-up with her construction electrician in 2 days and was discharged in stable condition. <Dr. Bernardino Blackmon MD - Last Filed: 01/02/23 11:10> [facility] Treatment and Re-Evaluation Narrative: Seen and evaluated independently and in conjunction with physician assistant public defender. Agree with notes above unless documented otherwise. This patient appears to have urticaria. The completely hector and less likely to be fungal in etiology. Pruritic especially in some areas, they are not just in intertriginous areas and there is no mucosal involvement or symptoms of anaphylaxis at all. Since she is breast-feeding I offered topicals, she is wavering about that and wants a wait and see prescription for prednisone we discussed what to do if she decides to fill that. She is seeing dermatology in 2 days. Etiology of the urticaria is unknown. She was on dicloxacillin for mastitis but took the last dose 2 or 3 weeks ago so I do not think that is related to this. She has had no recent illness since then, she mentioned Gonzales-Rodriguez I do not think that is related to this. Discharge Plan Triage Chief Complaint: Allergic Reaction ED Midlevel Provider: Elodia Yates ED Provider: Bernardino Blackmon Dx/Rx/DC Orders Clinical Impression: Urticaria Instructions: ED ADVERSE DRUG REACTION Allergic Prescriptions: New prednisone 20 mg tablet 40 mg PO DAILY 6 Days Qty: 12 0RF triamcinolone acetonide 0.1 % cream 1 applic topical DAILY Qty: 15 0RF Rx Instructions: whatever similar product is in stock is fine No Action omega-3 fatty acids [Fish Oil Concentrate] 1,000 mg capsule 1,000 mg PO DAILY omeprazole 40 mg capsule,delayed release(DR/EC) 40 mg PO DAILY Qty: 14 0RF Tablet 1 PO DAILY Vitamin D3 PRN (Reason: vitamin) Primary Care Provider: Shira Esquivel NP Referrals: Alvin,Shira [employer]IT[employer] WORK[employer], [employer]IT[employer] WORK[employer] [Primary Care Provider] - Activity Restrictions/Additional Instructions: Use the prescribed cream and continue benadryl. If you decide to take the prednisone pills do not breast-feed during this time. Follow-up with your construction electrician this week. Disposition Disposition: Home, Self Care
== END 2023-01-02 11:21 | disposition home or self-care (01) ==
PROVIDERS: Emergency Provider Emergency Medicine; PCP Nurse Practitioner Family; Visit Provider Emergency Medicine
DX: T78.40XA Allergy, unspecified, initial encounter (principal); N61.0 Mastitis without abscess; L50.9 Urticaria, unspecified; Z79.52 Long term (current) use of systemic steroids; X58.XXXA Exposure to other specified factors, initial encounter
CPT/HCPCS: 99282

== ENCOUNTER → 2023-02-15 | Outpatient (CLI) | payer OTHER, SELFPAY ==
[2023-02-15 11:36] LABS: Erythrocyte Sedimentation Rate 1 mm/hr (0-30)
[2023-02-15 11:38] LABS: Absolute Lymphocyte Count 2.22 X10^3/uL (0.83-4.51); Absolute Neutrophil Count 3.7 X10^3/uL (2.0-7.7); Basophil# 0.04 X10^3/uL; Basophil% 0.6 % (0-1); Eosinophil# 0.07 X10^3/uL; Eosinophils% 1.1 % (0-5); Hematocrit 42.9 % (37-47); Hemoglobin 14.3 g/dL (12.0-15.0); Lymphocyte # 2.22 X10^3/ul (0.83-4.51); Lymphocyte % 34.9 % (19-41); Mean Corp Hgb Conc 33.3 g/dL (32-36); Mean Corpuscular Hgb 31.4 pg (27.0-32.0); Mean Corpuscular Volume 94.1 fL (81-99); Mean Platelet Vol. 11.2 fl (6.2-12.0); Monocyte# 0.33 X10^3/uL; Monocyte% 5.2 % (0-10); NRBC Flagged by Analyzer 0 % (0-5); Neutrophil # 3.68 X10^3/uL (2.7-7.7); Neutrophil % 57.7 % (47-70); Platelet Count 204 K/mm3 (150-450); RBC Distribution Width CV 11.9 % (11.6-14.6); RBC Distribution Width SD 41.1 fl (35.1-43.9); Red Blood Count 4.56 M/mm3 (4.2-5.4); White Blood Count 6.4 K/mm3 (4.4-11.0)
[2023-02-15 12:18] LABS: AST(SGOT) 23 U/L (15-37); Alanine Aminotransfer ALT/SGPT 36 U/L (13-56); Albumin, Serum 3.7 g/dL (3.2-5.0); Alkaline Phosphatase 88 U/L (45-117); Anion Gap 5 (5-15); BUN 21 mg/dL (7-18); BUN/Creat Ratio 27.6 RATIO (10-20); CRP < 2.90 mg/L (0.0-3.0); Calcium,Total 9.6 mg/dL (8.5-10.1); Chloride 106 mmol/L (98-107); Creatinine, Serum 0.76 mg/dL (0.55-1.02); EST Glomerular Filtration Rate 91 mL/min (>60); Est Glom Filt Rate - Afr Amer 110 mL/min (>60); Globulin 3.8 g/dL (2.2-4.2); Glucose 87 mg/dL (74-106); LDH 203 U/L (84-246); Potassium 4.1 mmol/L (3.5-5.1); Protein, Total 7.5 g/dL (6.4-8.2); Sodium Level 141 mmol/L (136-145)
[2023-02-18 08:10] LABS: Albumin 4.3 g/dL (2.9-4.4); Alpha-1-Globulins 0.2 g/dL (0.0-0.4); Alpha-2-Globulins 0.6 g/dL (0.4-1.0); Angiotensin Convert Enzyme 39 U/L (14-82); Cytoplasmic Ab (C-ANCA) <1:20 titer (Neg:<1:20); Immunoglobulin A 113 mg/dL (87-352); Immunoglobulin G 1187 mg/dL (586-1602); Immunoglobulin M 108 mg/dL (26-217)
[2023-02-18 08:36] LABS: Immunoglobulin E 9 IU/mL (6-495); Perinuclear Ab (P-ANCA) <1:20 titer (Neg:<1:20)
[2023-02-18 12:09] LABS: Anti-Centromere B Ab <0.2 AI (0.0-0.9); Anti-Chromatin 0.4 AI (0.0-0.9); Anti-Jo <0.2 AI (0.0-0.9); Anti-Scleroderma-70 AB <0.2 AI (0.0-0.9); Beef <0.10 kU/L (Class 0); Clam <0.10 kU/L (Class 0); Codfish <0.10 kU/L (Class 0); Corn <0.10 kU/L (Class 0); Egg, White <0.10 kU/L (Class 0); Egg, Whole <0.10 kU/L (Class 0); Milk (Cow) <0.10 kU/L (Class 0); Peanut <0.10 kU/L (Class 0); Pork <0.10 kU/L (Class 0); RNP Ab 0.2 AI (0.0-0.9); SCALLOP <0.10 kU/L (Class 0); SESAME SEED <0.10 kU/L (Class 0); SJOGREN'S Anti-SS-A test < 0.2 AI (0.0-0.9); SJOGREN'S Anti-SS-B test < 0.2 AI (0.0-0.9); Shrimp <0.10 kU/L (Class 0); Smith Ab <0.2 AI (0.0-0.9); Soybean <0.10 kU/L (Class 0); Walnut, (Food) <0.10 kU/L (Class 0); Wheat <0.10 kU/L (Class 0)
[2023-02-18 12:22] LABS: Anti-dsDNA Ab <1 IU/mL (0-9); Chocolate <0.10 kU/L (Class 0)
== END | disposition home or self-care (01) ==
PROVIDERS: PCP Family Medicine; Referring Provider Internal Medicine Gastroenterology; Visit Provider Internal Medicine Gastroenterology
DX: R19.7 Diarrhea, unspecified (principal)
CPT/HCPCS: 36415; 80053; 82164; 82784; 82785; 83615; 84165; 85025; 85652; 86003; 86005; 86140; 86225; 86235; 86256; 86334

== ENCOUNTER → 2023-02-24 | Outpatient (CLI) | payer OTHER, SELFPAY ==
--- NOTE | 2023-02-24 12:09 | NM_ITS ---
CLINICAL: 37-year-old female with history of clinical gastroparesis. SEMI-SOLID PHASE 99m Tc SULFUR COLLOID GASTRIC EMPTYING STUDY COMPARISON: None available FINDINGS: The patient was administered 1.0 mCi of 99m Tc sulfur colloid mixed with oatmeal and consumed per os. Image acquisitions in the anterior-posterior projections were obtained for 60 minutes. There is prompt visualization of the stomach. There is no gastroesophageal reflux identified. The T ? raw data emptying was calculated to be 30.39 minutes, (Normal: 12-56 minutes). NM/Gastric Emptying Study IMPRESSION: 1. NORMAL 99m Tc sulfur colloid semi-solid phase (oatmeal) gastric emptying imaging examination. A. There is normal and preserved semi-solid phase gastric emptying compared to normal controls. (Toña et al, J Nucl Med Tech 38: 186, 2010). Electronically Signed: Christiano Poe, at 22:06 EDT ,
== END | disposition home or self-care (01) ==
LOC: NM 12:05
PROVIDERS: PCP Family Medicine; Visit Provider Internal Medicine Gastroenterology
DX: R19.7 Diarrhea, unspecified (principal)
CPT/HCPCS: 78264; A9541

== ENCOUNTER → 2023-06-22 | Outpatient (CLI) | payer OTHER, SELFPAY ==
[2023-06-26 21:07] LABS: Calprotectin, Stool <5 ug/g (0-120); Fats, Neutral Normal (.); Fats, Total Increased (.)
[2023-06-27 15:07] LABS: Pancreatic Elastase, Fecal 187 (>200)
== END | disposition home or self-care (01) ==
LOC: LABSPEC 14:25
PROVIDERS: PCP Family Medicine; Referring Provider Internal Medicine Gastroenterology; Visit Provider Internal Medicine Gastroenterology
DX: R19.7 Diarrhea, unspecified (principal); K58.9 Irritable bowel syndrome, unspecified
CPT/HCPCS: 82653; 82705; 83630; 83993; 87177; 87209; 87329; 87493; 87506

== ENCOUNTER 2024-11-13 10:37 | Inpatient (IN) | payer OTHER, SELFPAY ==
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
[2024-11-13] VITALS (16 sets, daily range): BP systolic 87–136; BP diastolic 36–99; PULSE 66–99; RESP 15–18; TEMP 36.5–37.6; O2SAT 96–167; BMI 32.3
[2024-11-13] MEDS: Lactated Ringers 1,000 ML 999 ML IV (10:35)
[2024-11-13 10:47] LABS: Absolute Lymphocyte Count 1.49 X10^3/uL (0.83-4.51); Absolute Neutrophil Count 5.4 X10^3/uL (2.0-7.7); Basophil# 0.03 X10^3/uL; Basophil% 0.4 % (0-1); Eosinophil# 0.07 X10^3/uL; Eosinophils% 0.9 % (0-5); Hematocrit 39.1 % (37-47); Hemoglobin 13.4 g/dL (12.0-15.0); Lymphocyte # 1.49 X10^3/ul (0.83-4.51); Mean Corp Hgb Conc 34.3 g/dL (32-36); Mean Corpuscular Hgb 31.9 pg (27.0-32.0); Mean Corpuscular Volume 93.1 fL (81-99); Mean Platelet Vol. 11.4 fl (6.2-12.0); Monocyte# 0.48 X10^3/uL; Monocyte% 6.4 % (0-10); NRBC Flagged by Analyzer 0 % (0-5); Neutrophil # 5.36 X10^3/uL (2.7-7.7); Neutrophil % 71.9 % (47-70); Platelet Count 129 K/mm3 (150-450); RBC Distribution Width CV 13.2 % (11.6-14.6); RBC Distribution Width SD 45.5 fl (35.1-43.9); White Blood Count 7.5 K/mm3 (4.4-11.0)
[2024-11-13] MEDS: Acetaminophen 500 MG Tablet 1000 MG PO ×3 (11:15→23:04)
[2024-11-13] MEDS: Lactated Ringers 1,000 ML 150 ML IV (11:17)
[2024-11-13] MEDS: Cefazolin 2 GM in Syringe IV (11:20)
[2024-11-13 11:37] LABS: Syphilis Antibodies Non-reactive
[2024-11-13] MEDS: Sodium Citrate/Citric Acid 30 ML UDC PO (12:01)
--- NOTE | 2024-11-13 13:02 | OP.PCM_ITS ---
Assessment & Plan (1) History of shoulder dystocia in prior , currently : (2) Supervision of high risk elderly multigravida in third trimester: (3) Advanced maternal age (AMA) in : (4) Previous delivery affecting : (5) 39 weeks gestation of : Maternal Data Information Final PRISCILLA: 11/18/24 Gestational age: 39 5/7 Operative Report (OB) Cecarean Details Procedure Type: low transverse Date of Procedure: 11/13/24 Procedure Start Time: :39 Procedure Stop Time: 13:08 Time of Delivery: 12:41 Pre-Operative Diagnosis: Repeat Elective Post-Operative Diagnosis: Same as Pre-operative diagnosis Classification: Scheduled Type of Anesthesia: Spinal Special Medications: duramorph Antibiotic Given: Ancef 2 grams IV x1 Drain: Minaya to straight drain Estimated Blood Loss: 800 Fluids Replaced: 750 Findings Description of surgery: The patient was taken to the operating room. She was prepped and draped in the dorsal supine position with a leftward tilt. A Pfannenstiel skin incision was made approximately 2 cm above the symphysis pubis and carried through to underlying layer fascia with the scalpel. The fascia was incised incised in the midline and extended laterally with the Sherman scissors. The fascia was dissected off the rectus muscles with blunt and sharp dissection. The rectus muscles were in the midline and the peritoneum was entered bluntly. The peritoneal incision was stretched and the bladder blade was placed. The uterine incision was made in a low transverse fashion with the scalpel and extended superiorly and inferiorly with blunt dissection. The amniotic membranes were ruptured bluntly and clear amniotic fluid returned. The 's head was brought to the incision in the flexed position and delivered without difficulty. The remainder of the was delivered with gentle traction and fundal pressure in the standard fashion. The mouth and nares were bulb suctioned. The cord was clamped and cut as the was stimulated. Cord clamping was delayed. The was handed off to the waiting nursing staff. The placenta was delivered with fundal massage and gentle traction in the sta ndard fashion. The uterus was exteriorized and cleared of all clots and debris. The cervix was dilated with a ring forcep. The uterine incision was closed with #1 Vicryl in a running locked fashion. A single [id number] suture was needed in a sinus on the right side of the incision and then hemostasis was noted. The incision was examined and was found to be hemostatic. The uterus was placed back into the peritoneal cavity and hemostasis was again confirmed. The rectus muscles were examined and any bleeding was Bovie cauterized. The parietal peritoneum and rectus muscles were closed en bloc with an 0 Vicryl running suture. The surgical teams outer gloves were then changed. The rectus fascia was examined and any bleeding was Bovie cauterized and the rectus fascia was closed with #1 PDS suture in a running standard fashion. The subcutaneous tissue was examining and any bleeding was Bovie cauterized. The subcutaneous tissue was reapproximated with 3-0 Vicryl suture. The skin was closed in a subcuticular fashion by the [employer] ARCHITECT with me present in the labor and delivery suite. I performed the remainder of the procedure with assistance. All sponge, lap, and needle counts were correct. The patient was taken to her room for recovery in a stable condition. Surgical findings: Normal uterus tubes and ovaries normal placenta with three-vessel cord. Presentation: Vertex Amniotic Membrane Rupture Type: Artificial Amniotic Fluid Description: Clear Placental Delivery Description: Expressed Placenta Disposition: [facility] Specimen collected: No Cord Vessel Description: 3 Vessels Cord Entanglement: None Infant A gender: Male (1 minute): 8 (5 minute): 8 Delayed Cord Clamping: Yes Food Or Baggage Handling Rampman electric shipyard operator: Yes Life Manager: Walter Gill Tasks completed by psych assistant: Closing and Retracting Additional treasury assistant?: No Complications Complications: No Admit VTE Documentation VTE Present on Admission: No VTE Mechan Device Prophylaxis: SCD's VTE Pharm Prophylaxis Ordered: Yes
[2024-11-13] MEDS: Oxytocin 15 Units/NS 250ml 15 UNITS/250 ML IV.SOLN 83 UNITS IV (13:30)
[2024-11-13] MEDS: Ketorolac 30 MG/ML Syringe IV ×2 (14:34→20:53)
[2024-11-13] MEDS: Lactated Ringers 1,000 ML 100 ML IV ×2 (14:35→19:20)
[2024-11-14] MEDS: Enoxaparin 40 MG/0.4 ML Syringe SC (00:29)
[2024-11-14 00:34] VITALS: BP 115/69; PULSE 67; RESP 16; TEMP 36.7; O2SAT 100
[2024-11-14] MEDS: 0.9% Saline Lock 10 ML Syringe IV (02:51)
[2024-11-14] MEDS: Ketorolac 30 MG/ML Syringe IV ×2 (02:51→08:28)
[2024-11-14 04:12] VITALS: BP 112/66; PULSE 56; RESP 16; TEMP 36.7; O2SAT 97
[2024-11-14] MEDS: Acetaminophen 500 MG Tablet 1000 MG PO ×4 (05:04→23:42)
[2024-11-14 05:42] LABS: Hemoglobin 12.1 g/dL (12.0-15.0); Mean Corp Hgb Conc 34.6 g/dL (32-36); Mean Corpuscular Hgb 32.2 pg (27.0-32.0); Mean Corpuscular Volume 93.1 fL (81-99); Mean Platelet Vol. 11.5 fl (6.2-12.0); Platelet Count 125 K/mm3 (150-450); RBC Distribution Width CV 13.2 % (11.6-14.6); Red Blood Count 3.76 M/mm3 (4.2-5.4); White Blood Count 11.1 K/mm3 (4.4-11.0)
[2024-11-14 08:31] VITALS: BP 124/81; PULSE 57; RESP 16; TEMP 35.8
--- NOTE | 2024-11-14 08:43 | PCM.PN.OB ---
Subjective Subjective Doing well. Ambulating and voiding without difficulty. Mild lochia. Breast feeding. Objective Data Objective Data Vital Signs: Vital Signs Temp Pulse Resp BP Pulse Ox O2 Del Method 96.5 F L 57 L 16 124/81 H 97 Room Air 11/14/24 08:31 11/14/24 08:31 11/14/24 08:31 11/14/24 08:31 11/14/24 04:12 11/14/24 04:12 Oxygen Delivery Method Room Air Weight: 82.645 kg Body Mass Index (BMI) 32.3 Intake & Output: Intake and Output for Last 24 Hours 11/12/24 11/13/24 11/14/24 23:59 23:59 23:59 Intake Total 2980 / 2980 1000 / 1000 Output Total 1700 / 1700 1100 / 1100 Balance 1280 / 1280 -100 / -100 Lab / Micro Data 11/14/24 05:20 Labs: Laboratory Results - last 24 hr 11/13/24 10:35: WBC 7.5, RBC 4.20, Hgb 13.4, Hct 39.1, MCV 93.1, MCH 31.9, MCHC 34.3, RDW Std Deviation 45.5 H, RDW Coeff of Jamaal 13.2, Plt Count 129 L, MPV 11.4, Immature Gran % (Auto) 0.400, Neut % (Auto) 71.9 H, Lymph % (Auto) 20.0, [place] % (Auto) 6.4, Eos % (Auto) 0.9, Baso % (Auto) 0.4, Absolute Neuts (auto) 5.4, Absolute Lymphs (auto) 1.49, Nucleated RBC % 0, Syphilis Total Ab Non-reactive, Blood Type O POSITIVE, Antibody Screen NEGATIVE 11/14/24 05:20: WBC 11.1 H, RBC 3.76 L, Hgb 12.1, Hct 35.0 L, MCV 93.1, MCH 32.2 H, MCHC 34.6, RDW Std Deviation 45.0 H, RDW Coeff of Jamaal 13.2, Plt Count 125 L, MPV 11.5 ROS Constitutional Constitutional: Denies fatigue, fever(s) or malaise Eyes Eyes: Denies change in vision ENT HEENT: Denies dizziness or headache(s) Cardiovascular Cardiovascular: Denies chest pain, dyspnea or lightheadedness Respiratory/Chest Respiratory/Chest: Denies cough or dyspnea Gastrointestinal Gastrointestinal: Denies change in bowel habits Genitourinary Genitourinary: Denies burning urination or genital lesions Integumentary Integumentary: Denies rash Neurologic Neurologic: Denies confusion, dizziness, headache(s), numbness or weakness Physical Exam Const alert General Appearance: cooperative GI GI Narrative: soft, moderate distention, fundus firm, appropriately tender. Abdominal bandage clean dry and intact Assessment & Plan (1) S/P section: PLAN: POD#1 PLAN: Plan Routine care
[2024-11-14] MEDS: Senna/Docusate Sodium 1 Tablet PO (11:24)
[2024-11-14 13:10] VITALS: BP 120/79; PULSE 67; RESP 16; TEMP 36.6
[2024-11-14] MEDS: Ibuprofen 600 MG Tablet PO ×2 (14:55→20:15)
[2024-11-14] MEDS: SimETHICONE 80 MG Chewable Tablet PO ×2 (15:59→20:15)
[2024-11-14 20:20] VITALS: BP 124/69; PULSE 70; RESP 14; TEMP 36.4; O2SAT 99
[2024-11-15] MEDS: Enoxaparin 40 MG/0.4 ML Syringe SC (02:36)
[2024-11-15] MEDS: Ibuprofen 600 MG Tablet PO ×2 (02:36→08:31)
[2024-11-15 02:41] VITALS: BP 122/76; PULSE 63; RESP 16; TEMP 36.4; O2SAT 97
[2024-11-15] MEDS: Acetaminophen 500 MG Tablet 1000 MG PO ×2 (05:24→11:00)
--- NOTE | 2024-11-15 07:37 | PCM.PN.OB ---
Subjective Subjective Doing well. Ambulating and voiding without difficulty. Mild lochia. Breast feeding. Objective Data Objective Data Vital Signs: Vital Signs Temp Pulse Resp BP Pulse Ox O2 Del Method 97.6 F L 63 16 122/76 H 97 Room Air 11/15/24 02:41 11/15/24 02:41 11/15/24 02:41 11/15/24 02:41 11/15/24 02:41 11/15/24 02:41 Oxygen Delivery Method Room Air Weight: 82.645 kg Body Mass Index (BMI) 32.3 Intake & Output: Intake and Output for Last 24 Hours 11/13/24 11/14/24 11/15/24 23:59 23:59 23:59 Intake Total 2980 / 2980 1000 / 1000 Output Total 1700 / 1700 1100 / 1100 Balance 1280 / 1280 -100 / -100 Lab / Micro Data 11/14/24 05:20 ROS Constitutional Constitutional: Denies fatigue, fever(s) or malaise Eyes Eyes: Denies change in vision ENT HEENT: Denies dizziness or headache(s) Cardiovascular Cardiovascular: Denies chest pain, dyspnea or lightheadedness Respiratory/Chest Respiratory/Chest: Denies cough or dyspnea Gastrointestinal Gastrointestinal: Denies change in bowel habits Genitourinary Genitourinary: Denies burning urination or genital lesions Integumentary Integumentary: Denies rash Neurologic Neurologic: Denies confusion, dizziness, headache(s), numbness or weakness Physical Exam Const alert General Appearance: cooperative GI GI Narrative: soft, moderate distention, fundus firm, appropriately tender. Abdominal bandage clean dry and intact Assessment & Plan (1) S/P section: PLAN: Plan discharge home
--- NOTE | 2024-11-15 07:38 | PCM.DC.SUM ---
Providers Date of Admission: 11/13/24 Date of Discharge: 11/15/24 Primary Care Physician: Dr. Edwin Cooper MD Reason For Visit: REPEAT C SECTION Diagnosis Discharge Diagnosis (1) S/P section: Status: Acute Code(s): Z98.891 - History of uterine scar from previous surgery Plan discharge home Medications at Discharge Home Medications Tablet 1 cap PO DAILY 03/22/18 Vitamin D3 1 cap PO DAILY PRN vitamin 03/22/18 ibuprofen 600 mg tablet 600 mg PO Q6H #30 tabs 11/15/24 Hospital Course Operations section Procedures None Summary of Care Provided Minutes Spent on Discharge: 20 Hospital Course: Scheduled repeat . Uncomplicated. Breast feeding. Physical Exam Const alert General Appearance: cooperative GI GI Narrative: soft, moderate distention, fundus firm, appropriately tender. Abdominal bandage clean dry and intact Weight / BMI Weight Weight: 82.645 kg Body Mass Index (BMI) 32.3 ABG / Lab / Microbiology Data 11/14/24 05:20 D/C Instructions Discharge Diet: No restrictions May resume sexual activity in: 4-6 weeks Lifting Restrictions: 20 pounds Additional Activity Instructions: Nothing in the vagina for 4-6 weeks. You may return to work/school in 6 weeks. Call your doctor if your incision/area has: Continuous Slow Oozing, Sudden Increased Bleeding, Increased Pain/ Swelling, Increased Redness and Foul Smelling Discharge Call your doctor if you observe: Fever of 101 or Higher and Using more than 1 pad per hour (for 2 hours) Suture Line Care: Avoid Pulling/Pushing and Avoid Pinching/Bending Cleanse incision/area with: Keep Dressing Clean & Dry DC O2, CPAP, BIPAP Needs Home O2 Discharge instructions: No DC home with Oxygen: No Please Follow Up With: Kelly Ozuna MD When: Call to make an appointment for an incision check in 1-2 [phone]. You will need a post check in 6 weeks. Meaningful Use Info Meaningful Use Meaningful Use Diagnoses (Choose all that apply): None applicable Ischemic Stroke Statin Dosing Therapy Reference: STATIN DOSE THERAPY REFERENCE: * Patients > 75 years receive moderate or high dose statin therapy. * Patients 75 years or YOUNGER should receive HIGH intensity statin dose unless contraindicated. You will be required to document reason for non-treatment if statin daily dose does not meet guidelines. HIGH DOSE STATIN THERAPY DAILY Atorvastatin > than or = to 40 mg Rosuvastatin > than or = to 20 mg Amlodipine + Atorvastatin > than or = to 2.5/40 mg Ezetimibe + Simvastatin 10/80 mg Simvastatin 80mg Discharge Plan Admission Admit Date/Time: 11/13/24 10:37 Primary Reason for Your Visit: Attending Provider: Kelly Ozuna Primary Care Provider: Edwin Cooper Discharge Orders/Prescriptions Prescriptions: New ibuprofen 600 mg Tablet 600 mg PO Q6H Qty: 30 0RF Continued Tablet 1 cap PO DAILY Vitamin D3 1 cap PO DAILY PRN (Reason: vitamin) Rx Instructions: 5,000 Referrals / Follow Up: Edwin Cooper MD [Primary Care Provider] - Disposition Disposition (needs filled in before D/C Order can be placed): Home, Self Care
[2024-11-15] MEDS: Senna/Docusate Sodium 1 Tablet PO (08:31)
[2024-11-15 08:49] VITALS: BP 113/74; PULSE 72; RESP 16; TEMP 36.2; O2SAT 99
--- NOTE | 2024-11-15 12:01 | CASEMGMT ---
Social Work Assessment Labor and Delivery Unit Patient Address:[address] [place] [address] [place] [address] Phone number: [phone] Date of Referral: 11/14/24 Time of Referral:? 627 Referred By: Dr. Ozuna Date of Intervention: ??11/15/24 Time of Intervention:? 1119 Reason for Referral:? PTSD Sw completed chart review and acknowledges social work consult due to maternal mental health history of PTSD. Sw presented to bedside and introduced self to mother of baby (CHAY- Viridiana) and father of baby (ASHLIE- Tavo). Sw explained sw role and completed psychosocial assessment. History obtained from: medical records, MOB and FOPeri Household composition: Currently residing in the family home is CHAY, ASHLIE, their three older children: Chris- 9, Justyna- 6, and Joelle- 2. [place] baby to be added to residence when ready for discharge. Parents deny any issues or concerns with current housing, reporting it to be safe and secure. Patient's parent/guardian status:? ?Parents report that they met at [employer] and have been together for 15 years. No concerns reported of domestic violence or intimate partner violence. [place] baby is fourth baby for parents together. Medical History: ?CHAY is 39 year old female who is 4, para 3- now 4 following labor and delivery. CHAY received routine care during with [facility]. CHAY has experienced multiple traumatic deliveries, which is where her PTSD comes from, so she opted to have a scheduled repeat and baby was a surprise gender, their first boy. CHAY presented to hospital on 11/13/24 for scheduled at 39 weeks gestation. Baby boy, named Kennedy Kendall, was born weighing 8lb 6oz with apgars of 8 and 8 at one and five minutes, respectfully. CHAY states that breast feeding is going well and baby will be followed by Dr. Mitchell. Educational Status:? Both parents graduated from high school, CHAY has some college credits- no degree, ASHLIE obtained his Master's degree. No concerns with reading, learning or comprehension. Financial Status: Both parents are gainfully employed outside of the home. ASHLIE works as a middle school mentally impaired teacher and [employer] track. 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 Infant Supplies: Parents have obtained all necessary baby supplies, including: car seat, safe sleep space, clothes, diapers and wipes. Childcare/Caregiver(s):? CHAY will be the primary caregiver to baby, along with help from family members. Transportation:??Both parents have their drivers license, and reliable means of transportation. No barriers. Programs/Agencies Involved: ???Parents are not connected to any community resources that assist them financially. Children Services/Legal Issues:???No history of children services involvement. No issues or concerns warranting referral to be made at this time. Behavioral Health Issues: ??Mental Health History:??ASHLIE states that he has been diagnosed with ADHD and was previously prescribed medication to help him manage his ADHD. ASHLIE states that while he was prescribed medication, he started counseling with Kat Cheng at [facility] who taught him coping skills to manage his anxiety opposed to requiring medication. ASHLIE states that what he learned through counseling has helped him manage his mental health significantly. CHAY reports to have PTSD as a result from traumatic deliveries in the past. MBO states that she is not on any medications. CHAY also reports that she lost her brother when he was [age] years old, and that loss at a young age does contribute to some intrusive anxious thoughts. CHAY states that she and ASHLIE are still in counseling together at [facility]. ? Substance Use History: Parents deny substance use prior to and during . Family History:??ASHLIE states that his family has history of addiction, stating that he brother has an addiction problems and is an addict. Parents state that they are aware of this and mindful not to seek comfort from drugs or alcohol. ??? Drug Screens: No drug screens observed during chart review. Family/Social Stressors:? Parents deny any issues, concerns or stressors at this time. CHAY states that her delivery went well and although she did not want surgery she is thankful to know what to expect. Support Systems: Parents report that they have a lot of supports in place. CHAY states that she and ASHLIE are each others biggest supports. Both sets of grandparents are supportive along with CHAY's sister and [employer] family. Depression/Shaken Baby/Safe Sleeping: educated parents on signs and symptoms of baby blues and mood and anxiety disorders to be mindful of during this period. Parents state that they are mindful about what to expect going into this period and are prepared. MOB states that she has a lot of people that she can reach out to if she needs to. FOB states that he is really in tune with MOB's mental health and aware of when she may be struggling. FOB states that he would know how to help and support MOB if she were to struggle, and as always they would touch base with their counselor. Sw educated parents to ABCs of safe sleep and shaken baby prevention. Parents expressed understanding. ASSESSMENT:? MOB and baby admitted following labor and delivery. MOB and FOB both with mental health diagnoses. Neither parents is prescribed medication, but they are connected to mental health services and supports. MOB states that she works one or two days out of the week and this is good for her mental health. MOB states that the baby phase is her favorite, reporting to feel a connection and a hines with baby. MOB was observed holding and feeding baby during assessment. MOB would smile at baby lovingly. Parents state extremely surprised that baby was a boy and could not be more excited about that. Parents have all necessary baby supplies and natural supports in place. PLAN:?? No other services requested or indicated. MOB and baby to be discharged when medically ready. Parents were provided literature regarding: signs and symptoms of baby blues and mood and anxiety disorders, Help Me Grow, shaken baby prevention, ABCs of safe sleep and a list of county resources that are available for them should any needs present themselves. Cheyanne Wu, COPPER TAPPER, SUPERVISOR CAPACITOR PROCESSING
[2024-11-15 12:53] VITALS: BP 129/68; PULSE 84; RESP 16; TEMP 36.5; O2SAT 99
== END 2024-11-15 13:45 | disposition home or self-care (01) | DRG 788 ==
PROVIDERS: Admitting Provider Obstetrics & Gynecology; PCP Family Medicine; Referring Provider Obstetrics & Gynecology; Visit Provider Obstetrics & Gynecology
PROC: 10D00Z1 Extraction of Products of Conception, Low, Open Approach (ICD-10-PCS; CPT 59514; principal; 2024-11-13 11:45)
DX: O34.219 Maternal care for unspecified type scar from previous cesarean delivery (principal); Z37.0 Single live birth; Z3A.39 39 weeks gestation of pregnancy
CPT/HCPCS: 59025; 59050; 85025; 85027; 86780; 86850; 86900; 86901; 99221; J7120; A4216; G0378

== ENCOUNTER 2024-11-21 17:00 | Inpatient (IN) | payer OTHER, SELFPAY ==
[2024-11-21] VITALS (68 sets, daily range): BP systolic 125–173; BP diastolic 74–93; PULSE 53–100; RESP 16–18; TEMP 35.9–36.7; O2SAT 93–100; BMI 30.3
[2024-11-21 16:25] LABS: Protein:Creat Ratio 246 mg/g CRE (0-200)
[2024-11-21 16:25] LABS: Hematocrit 34.8 % (37-47); Hemoglobin 11.6 g/dL (12.0-15.0); Mean Corp Hgb Conc 33.3 g/dL (32-36); Mean Corpuscular Hgb 31.6 pg (27.0-32.0); Mean Corpuscular Volume 94.8 fL (81-99); Mean Platelet Vol. 10.6 fl (6.2-12.0); Platelet Count 250 K/mm3 (150-450); RBC Distribution Width SD 45.1 fl (35.1-43.9); Red Blood Count 3.67 M/mm3 (4.2-5.4); White Blood Count 7.7 K/mm3 (4.4-11.0)
[2024-11-21 16:52] LABS: AST(SGOT) 25 U/L (15-37); Alanine Aminotransfer ALT/SGPT 33 U/L (13-56); Creatinine, Serum 0.86 mg/dL (0.55-1.02); EST Glomerular Filtration Rate 79 mL/min (>60); Est Glom Filt Rate - Afr Amer 95 mL/min (>60); Estimated Creatinine Clearance 86.71 ml/min; Uric Acid 5.3 mg/dL (2.6-6.0)
[2024-11-21] MEDS: NIFEdipine 10 MG Capsule PO (17:10)
[2024-11-21] MEDS: Magnesium Sulfate 4gm/100mL 4 GM/100 ML IV.SOLN. IV (17:22)
[2024-11-21] MEDS: Lactated Ringers 500 ML 30 ML IV (17:22)
[2024-11-21] MEDS: Acetaminophen 500 MG Tablet 1000 MG PO ×2 (17:37→23:40)
[2024-11-21] MEDS: Magnesium Sulfate 4gm/100mL 2 GM/50 ML IV.SOLN. IV (17:44)
[2024-11-21] MEDS: Magnesium Sulfate 20 GM/500 ML BAG IV (18:00)
[2024-11-21] MEDS: NIFEdipine 30 MG Tablet PO (18:41)
--- NOTE | 2024-11-21 18:56 | HP.PCM.OB_ITS ---
HPI - General General Date of Admission: 11/21/24 HPI Narrative [facility], is a 39 F s/p Repeat cs at 39 weeks on 11/13/24- uncomplicated - who presents with complaints of Headache in the back of her head radiating down spine that started at 10:30am and elevated BPs. pt reports no issues with BP during or prior to dc home from hospital. pt reports is taking Tylenol and motrin for pain from CS and that is not helping ORTEGA. pt reports ORTEGA is not positional. pt reports no RUQ pain, no Visual changes. no other conerns today. [facility] Medical History (Updated 11/21/24 @ 19:[address] Simona Hoffman MD) Care and examination of lactating mother Shoulder dystocia during labor and delivery Vaginal after Anxiety Advanced maternal age (AMA) in Disorder of tear duct system Home Medications ?Medication ?Instructions ?Recorded ?Last Taken ?Type Tablet 1 cap PO DAILY 03/22/18 11/20/24 23:00 History Vitamin D3 1 cap PO DAILY PRN vitamin 03/22/18 11/20/24 23:00 History ibuprofen 600 mg tablet 600 mg PO Q6H #30 tabs 11/15/24 11/21/24 14:00 Rx acetaminophen 500 mg tablet 1,000 mg PO Q6H PRN pain 11/21/24 11/21/24 11:00 History (Acetaminophen Extra Strength) cetirizine 10 mg tablet 10 mg PO DAILY 11/21/24 11/20/24 23:00 History Allergy/AdvReac Type Severity Reaction Status Date / Time No Known Allergies Allergy Verified 11/21/24 15:59 Family History Sister Hypertension Heart disease Father Heart disease CAD (coronary artery disease) Brother Heart disease Grandmother Lupus Surgical History History of section S/P section S/P shoulder surgery History of surgery on arm Social History Smoking Status: Never smoker alcohol intake: never History Elective abortions Hx Para 3 Spontaneous abortions Hx # Term Pregnancies Ectopic pregnancies Hx # Pregnancies Multiple births # of living children Vital Signs Vital Signs Vital Signs: 11/21/24 15:46 11/21/24 15:46 11/21/24 15:51 Temperature Temperature Source Pulse Rate 54 L 54 L Respiratory Rate Respiratory Effort Respiratory Depth Respiratory Pattern Blood Pressure Blood Pressure Mean BP Systolic BP Diastolic Blood Pressure Source Blood Pressure Position Blood Pressure Location Pulse Ox 98 Oxygen Delivery Method 11/21/24 15:51 11/21/24 15:56 11/21/24 15:56 Temperature Temperature Source Pulse Rate 54 L Respiratory Rate Respiratory Effort Respiratory Depth Respiratory Pattern Blood Pressure Blood Pressure Mean BP Systolic BP Diastolic Blood Pressure Source Blood Pressure Position Blood Pressure Location Pulse Ox 97 96 Oxygen Delivery Method 11/21/24 16:01 11/21/24 16:01 11/21/24 16:02 Temperature Temperature Source Pulse Rate 56 L Respiratory Rate Respiratory Effort Respiratory Depth Respiratory Pattern Blood Pressure 158/80 H Blood Pressure Mean BP Systolic 158 BP Diastolic 80 Blood Pressure Source Blood Pressure Position Blood Pressure Location Pulse Ox 96 Oxygen Delivery Method 11/21/24 16:02 11/21/24 16:02 11/21/24 16:02 Temperature Temperature Source Temporal Pulse Rate 56 L Respiratory Rate 16 Respiratory Effort Respiratory Depth Respiratory Pattern Blood Pressure Blood Pressure Mean BP Systolic BP Diastolic Blood Pressure Source Blood Pressure Position Blood Pressure Location Pulse Ox Oxygen Delivery Method 11/21/24 16:02 11/21/24 16:02 11/21/24 16:06 Temperature 97.6 F L Temperature Source Pulse Rate 57 L Respiratory Rate Respiratory Effort Respiratory Depth Respiratory Pattern Blood Pressure Blood Pressure Mean BP Systolic BP Diastolic Blood Pressure Source Blood Pressure Position Blood Pressure Location Pulse Ox 98 Oxygen Delivery Method 11/21/24 16:06 11/21/24 16:11 11/21/24 16:11 Temperature Temperature Source Pulse Rate 58 L Respiratory Rate Respiratory Effort Respiratory Depth Respiratory Pattern Blood Pressure Blood Pressure Mean BP Systolic BP Diastolic Blood Pressure Source Blood Pressure Position Blood Pressure Location Pulse Ox 96 97 Oxygen Delivery Method 11/21/24 16:16 11/21/24 16:16 11/21/24 16:17 Temperature Temperature Source Pulse Rate 56 L Respiratory Rate Respiratory Effort Respiratory Depth Respiratory Pattern Blood Pressure 158/85 H Blood Pressure Mean BP Systolic 158 BP Diastolic 85 Blood Pressure Source Blood Pressure Position Blood Pressure Location Pulse Ox 98 Oxygen Delivery Method 11/21/24 16:17 11/21/24 16:17 11/21/24 16:17 Temperature Temperature Source Pulse Rate 58 L Respiratory Rate 16 Respiratory Effort Respiratory Depth Respiratory Pattern Blood Pressure Blood Pressure Mean BP Systolic BP Diastolic Blood Pressure Source Blood Pressure Position Blood Pressure Location Pulse Ox 98 Oxygen Delivery Method 11/21/24 16:18 11/21/24 16:18 11/21/24 16:18 Temperature Temperature Source Pulse Rate 55 L Respiratory Rate 16 Respiratory Effort Respiratory Depth Respiratory Pattern Blood Pressure 149/81 H Blood Pressure Mean BP Systolic 149 BP Diastolic 81 Blood Pressure Source Blood Pressure Position Blood Pressure Location Pulse Ox Oxygen Delivery Method 11/21/24 16:18 11/21/24 16:21 11/21/24 16:21 Temperature Temperature Source Pulse Rate 60 Respiratory Rate Respiratory Effort Respiratory Depth Respiratory Pattern Blood Pressure Blood Pressure Mean BP Systolic BP Diastolic Blood Pressure Source Blood Pressure Position Blood Pressure Location Pulse Ox 98 98 Oxygen Delivery Method 11/21/24 16:26 11/21/24 16:26 11/21/24 16:31 Temperature Temperature Source Pulse Rate 57 L 53 L Respiratory Rate Respiratory Effort Respiratory Depth Respiratory Pattern Blood Pressure Blood Pressure Mean BP Systolic BP Diastolic Blood Pressure Source Blood Pressure Position Blood Pressure Location Pulse Ox 97 Oxygen Delivery Method 11/21/24 16:31 11/21/24 16:33 11/21/24 16:33 Temperature Temperature Source Pulse Rate 57 L Respiratory Rate Respiratory Effort Respiratory Depth Respiratory Pattern Blood Pressure 166/91 H Blood Pressure Mean BP Systolic 166 BP Diastolic 91 Blood Pressure Source Blood Pressure Position Blood Pressure Location Pulse Ox 98 Oxygen Delivery Method 11/21/24 16:33 11/21/24 16:33 11/21/24 16:39 Temperature Temperature Source Pulse Rate 83 Respiratory Rate 16 Respiratory Effort Respiratory Depth Respiratory Pattern Blood Pressure Blood Pressure Mean BP Systolic BP Diastolic Blood Pressure Source Blood Pressure Position Blood Pressure Location Pulse Ox 98 Oxygen Delivery Method 11/21/24 16:39 11/21/24 16:44 11/21/24 16:44 Temperature Temperature Source Pulse Rate 59 L Respiratory Rate Respiratory Effort Respiratory Depth Respiratory Pattern Blood Pressure Blood Pressure Mean BP Systolic BP Diastolic Blood Pressure Source Blood Pressure Position Blood Pressure Location Pulse Ox 98 98 Oxygen Delivery Method 11/21/24 16:48 11/21/24 16:48 11/21/24 16:48 Temperature Temperature Source Pulse Rate 61 Respiratory Rate 16 Respiratory Effort Respiratory Depth Respiratory Pattern Blood Pressure 171/87 H Blood Pressure Mean BP Systolic 171 BP Diastolic 87 Blood Pressure Source Blood Pressure Position Blood Pressure Location Pulse Ox Oxygen Delivery Method 11/21/24 16:48 11/21/24 16:49 11/21/24 16:49 Temperature Temperature Source Pulse Rate 59 L Respiratory Rate Respiratory Effort Respiratory Depth Respiratory Pattern Blood Pressure Blood Pressure Mean BP Systolic BP Diastolic Blood Pressure Source Blood Pressure Position Blood Pressure Location Pulse Ox 98 99 Oxygen Delivery Method 11/21/24 16:54 11/21/24 16:54 11/21/24 16:59 Temperature Temperature Source Pulse Rate 57 L 73 Respiratory Rate Respiratory Effort Respiratory Depth Respiratory Pattern Blood Pressure Blood Pressure Mean BP Systolic BP Diastolic Blood Pressure Source Blood Pressure Position Blood Pressure Location Pulse Ox 100 Oxygen Delivery Method 11/21/24 16:59 11/21/24 17:03 11/21/24 17:03 Temperature Temperature Source Pulse Rate 61 Respiratory Rate Respiratory Effort Respiratory Depth Respiratory Pattern Blood Pressure 169/92 H Blood Pressure Mean BP Systolic 169 BP Diastolic 92 Blood Pressure Source Blood Pressure Position Blood Pressure Location Pulse Ox 99 Oxygen Delivery Method 11/21/24 17:03 11/21/24 17:03 11/21/24 17:04 Temperature Temperature Source Pulse Rate 64 Respiratory Rate 16 Respiratory Effort Respiratory Depth Respiratory Pattern Blood Pressure Blood Pressure Mean BP Systolic BP Diastolic Blood Pressure Source Blood Pressure Position Blood Pressure Location Pulse Ox 99 Oxygen Delivery Method 11/21/24 17:04 11/21/24 17:09 11/21/24 17:09 Temperature Temperature Source Pulse Rate 64 Respiratory Rate Respiratory Effort Respiratory Depth Respiratory Pattern Blood Pressure Blood Pressure Mean BP Systolic BP Diastolic Blood Pressure Source Blood Pressure Position Blood Pressure Location Pulse Ox 98 98 Oxygen Delivery Method 11/21/24 17:18 11/21/24 17:18 11/21/24 17:18 Temperature Temperature Source Pulse Rate 65 Respiratory Rate 16 Respiratory Effort Respiratory Depth Respiratory Pattern Blood Pressure 173/93 H Blood Pressure Mean BP Systolic 173 BP Diastolic 93 Blood Pressure Source Blood Pressure Position Blood Pressure Location Pulse Ox Oxygen Delivery Method 11/21/24 17:18 11/21/24 17:22 11/21/24 17:22 Temperature 97.6 F L Temperature Source Temporal Temporal Pulse Rate 65 Respiratory Rate 16 Respiratory Effort Normal Non-Labored Respiratory Depth Normal Respiratory Pattern Normal Blood Pressure 173/93 H Blood Pressure Mean 119 BP Systolic BP Diastolic Blood Pressure Source Monitor Blood Pressure Position Semi-Fowlers Blood Pressure Location Left Arm Pulse Ox 98 98 Oxygen Delivery Method Room Air 11/21/24 17:27 11/21/24 17:27 11/21/24 17:32 Temperature Temperature Source Pulse Rate 70 69 Respiratory Rate Respiratory Effort Respiratory Depth Respiratory Pattern Blood Pressure Blood Pressure Mean BP Systolic BP Diastolic Blood Pressure Source Blood Pressure Position Blood Pressure Location Pulse Ox 99 Oxygen Delivery Method 11/21/24 17:32 11/21/24 17:33 11/21/24 17:33 Temperature Temperature Source Pulse Rate 71 Respiratory Rate Respiratory Effort Respiratory Depth Respiratory Pattern Blood Pressure 154/88 H Blood Pressure Mean BP Systolic 154 BP Diastolic 88 Blood Pressure Source Blood Pressure Position Blood Pressure Location Pulse Ox 98 Oxygen Delivery Method 11/21/24 17:33 11/21/24 17:37 11/21/24 17:37 Temperature Temperature Source Pulse Rate 71 74 Respiratory Rate 16 Respiratory Effort Respiratory Depth Respiratory Pattern Blood Pressure 154/88 H Blood Pressure Mean 110 BP Systolic BP Diastolic Blood Pressure Source Monitor Blood Pressure Position Semi-Fowlers Blood Pressure Location Left Arm Pulse Ox 98 98 Oxygen Delivery Method Room Air 11/21/24 17:42 11/21/24 17:42 11/21/24 17:47 Temperature Temperature Source Pulse Rate 77 74 Respiratory Rate Respiratory Effort Respiratory Depth Respiratory Pattern Blood Pressure Blood Pressure Mean BP Systolic BP Diastolic Blood Pressure Source Blood Pressure Position Blood Pressure Location Pulse Ox 97 Oxygen Delivery Method 11/21/24 17:47 11/21/24 17:48 11/21/24 17:48 Temperature Temperature Source Pulse Rate 77 Respiratory Rate Respiratory Effort Respiratory Depth Respiratory Pattern Blood Pressure 151/87 H Blood Pressure Mean BP Systolic 151 BP Diastolic 87 Blood Pressure Source Blood Pressure Position Blood Pressure Location Pulse Ox 98 Oxygen Delivery Method 11/21/24 17:48 11/21/24 17:52 11/21/24 17:52 Temperature Temperature Source Pulse Rate 77 85 Respiratory Rate 16 Respiratory Effort Respiratory Depth Respiratory Pattern Blood Pressure 151/87 H Blood Pressure Mean 108 BP Systolic BP Diastolic Blood Pressure Source Monitor Blood Pressure Position Semi-Fowlers Blood Pressure Location Left Arm Pulse Ox 97 97 Oxygen Delivery Method Room Air 11/21/24 17:57 11/21/24 17:57 11/21/24 18:02 Temperature Temperature Source Pulse Rate 85 81 Respiratory Rate Respiratory Effort Respiratory Depth Respiratory Pattern Blood Pressure Blood Pressure Mean BP Systolic BP Diastolic Blood Pressure Source Blood Pressure Position Blood Pressure Location Pulse Ox 98 Oxygen Delivery Method 11/21/24 18:02 11/21/24 18:03 11/21/24 18:03 Temperature Temperature Source Pulse Rate 79 Respiratory Rate Respiratory Effort Respiratory Depth Respiratory Pattern Blood Pressure 146/86 H Blood Pressure Mean BP Systolic 146 BP Diastolic 86 Blood Pressure Source Blood Pressure Position Blood Pressure Location Pulse Ox 97 Oxygen Delivery Method 11/21/24 18:03 11/21/24 18:07 11/21/24 18:07 Temperature Temperature Source Pulse Rate 79 82 Respiratory Rate 16 Respiratory Effort Normal Non-Labored Respiratory Depth Normal Respiratory Pattern Normal Blood Pressure 146/86 H Blood Pressure Mean 106 BP Systolic BP Diastolic Blood Pressure Source Monitor Blood Pressure Position Semi-Fowlers Blood Pressure Location Left Arm Pulse Ox 98 97 Oxygen Delivery Method Room Air 11/21/24 18:21 11/21/24 18:21 11/21/24 18:26 Temperature Temperature Source Pulse Rate 72 75 Respiratory Rate Respiratory Effort Respiratory Depth Respiratory Pattern Blood Pressure Blood Pressure Mean BP Systolic BP Diastolic Blood Pressure Source Blood Pressure Position Blood Pressure Location Pulse Ox 97 Oxygen Delivery Method 11/21/24 18:26 11/21/24 18:28 11/21/24 18:28 Temperature Temperature Source Pulse Rate 75 Respiratory Rate Respiratory Effort Respiratory Depth Respiratory Pattern Blood Pressure 136/78 H Blood Pressure Mean BP Systolic 136 BP Diastolic 78 Blood Pressure Source Blood Pressure Position Blood Pressure Location Pulse Ox 98 Oxygen Delivery Method 11/21/24 18:28 11/21/24 18:28 11/21/24 18:31 Temperature 96.6 F L Temperature Source Temporal Temporal Pulse Rate 75 73 Respiratory Rate 16 Respiratory Effort Respiratory Depth Respiratory Pattern Blood Pressure 136/78 H Blood Pressure Mean 97 BP Systolic BP Diastolic Blood Pressure Source Monitor Blood Pressure Position Semi-Fowlers Blood Pressure Location Left Arm Pulse Ox 97 Oxygen Delivery Method Room Air 11/21/24 18:31 11/21/24 18:36 11/21/24 18:36 Temperature Temperature Source Pulse Rate 76 Respiratory Rate Respiratory Effort Respiratory Depth Respiratory Pattern Blood Pressure Blood Pressure Mean BP Systolic BP Diastolic Blood Pressure Source Blood Pressure Position Blood Pressure Location Pulse Ox 97 98 Oxygen Delivery Method 11/21/24 18:42 11/21/24 18:42 11/21/24 18:47 Temperature Temperature Source Pulse Rate 81 75 Respiratory Rate Respiratory Effort Respiratory Depth Respiratory Pattern Blood Pressure Blood Pressure Mean BP Systolic BP Diastolic Blood Pressure Source Blood Pressure Position Blood Pressure Location Pulse Ox 98 Oxygen Delivery Method 11/21/24 18:47 11/21/24 18:52 11/21/24 18:52 Temperature Temperature Source Pulse Rate 88 Respiratory Rate Respiratory Effort Respiratory Depth Respiratory Pattern Blood Pressure Blood Pressure Mean BP Systolic BP Diastolic Blood Pressure Source Blood Pressure Position Blood Pressure Location Pulse Ox 98 98 Oxygen Delivery Method Weight Weight: 77.746 kg Body Mass Index (BMI) 30.3 Physical Exam Narrative Abd: dressing removed- incision site dry and intact. No RUQ tenderness on palpation. ext: +2 DTR, no clonus Const alert and oriented x3 Labs Labs Labs: Blood Type O POSITIVE Antibody Screen NEGATIVE Hct 34.8 % (37-47) L Hgb 11.6 g/dL (12.0-15.0) L Syphilis Total Ab Non-reactive Rubella IgG Antibody Reactive (Nonreactive) Hep Bs Antigen Non-Reactive (Nonreactive) Hepatitis C Antibody Non-Reactive (Nonreactive) Hepatitis C Ab (EIA) 0.1 s/co ratio (0.0-0.9) Chlamydia DNA (LATASHA) Negative (Negative) N.gonorrhoeae DNA (LATASHA) Negative (Negative) HIV 1&2 Antibody Non-Reactive (Nonreactive) Glucose 1 Hr 50 gm 106 mg/dL (70-140) Group B Strep DNA POSITIVE (Negative) H Rhogam given: No Miscellaneous Test Assessment & Plan (1) Pre-eclampsia, : (2) S/P section: PLAN: Plan HD#0 , post Preeclampsia with severe features- occipital Headache, severe range BPs 1) Magnesium sulfate 6gm loading then 2g maintenance 2) Procardia 10mg PO x 1 given then 30xl maintenance 3) PRE E labs 4) Fluid restriction 150cc/hr total 5) discussed admission with patient 24-48hr until BP controlled - on oral medications. pt agreeable and was able to ask all questions. 6) occipital headache did improve after initiation of Magnesium and once BP came down with Procardia administration
--- NOTE | 2024-11-21 19:16 | NURSING ---
Tag only on baby due to maternal readmit.
[2024-11-21] MEDS: Ibuprofen 600 MG Tablet PO (20:43)
[2024-11-22] VITALS (36 sets, daily range): BP systolic 114–143; BP diastolic 63–91; PULSE 79–99; RESP 16–18; TEMP 36.1–36.8; O2SAT 97–99
[2024-11-22] MEDS: Ibuprofen 600 MG Tablet PO ×4 (02:38→20:31)
[2024-11-22] MEDS: Magnesium Sulfate 20 GM/500 ML BAG IV ×2 (03:51→14:02)
[2024-11-22] MEDS: Acetaminophen 500 MG Tablet 1000 MG PO ×3 (05:44→17:43)
[2024-11-22] MEDS: Lactated Ringers 500 ML 30 ML IV (10:46)
--- NOTE | 2024-11-22 12:25 | PN.OBGYN_ITS ---
Subjective Subjective Patient doing OK. Mag gtt running. She still has a frontal headache with light sensitivity, and overall she feels her headache has improved since admission. Blurred vision with the magnesium. Pain controlled. Lochia normal. Some nausea but no vomiting. Tolerating PO. Feels improved since admission and offers no new complaints. Objective Data Objective Data Vital Signs: Vital Signs Temp Pulse Resp BP Pulse Ox O2 Del Method 97.0 F L 91 16 119/75 99 Room Air 11/22/24 10:30 11/22/24 11:50 11/22/24 10:30 11/22/24 11:50 11/22/24 06:38 11/22/24 07:30 Oxygen Delivery Method Room Air Weight: 171 lb 6.4 oz Body Mass Index (BMI) 30.3 Intake & Output: Intake and Output for Last 24 Hours 11/20/24 11/21/24 11/22/24 23:59 23:59 23:59 Intake Total 630 / 630 1622.5 / 1622.5 Output Total 2650 / 2650 3200 / 3200 Balance -2020 / -2020 -1577.5 / -1577.5 Lab / Micro Data 11/21/24 16:15 11/21/24 16:15 Labs: Laboratory Results - last 24 hr 11/21/24 15:40: U Random Total Protein 8.0, Urine Creatinine 32.50, P rotein/Creatinin Ratio 246 H 11/21/24 16:15: WBC 7.7, RBC 3.67 L, Hgb 11.6 L, Hct 34.8 L, MCV 94.8, MCH 31.6, MCHC 33.3, RDW Std Deviation 45.1 H, RDW Coeff of Jamaal 13.0, Plt Count 250, MPV 10.6, Creatinine 0.86, Estim Creat Clear Calc 86.71, Est GFR (MDRD) Af Amer 95, Est GFR (MDRD) Non-Af 79, Uric Acid 5.3, AST 25, ALT 33 Physical Exam Const alert and no apparent distress HEENT normocephalic Resp normal respiratory effort GI soft to palpation, non-tender and non-distended GI Narrative: FF@U, incision c/d/i Extremity no calf tenderness Extremity Narrative: Patellar reflex 1+ Assessment & Plan (1) Pre-eclampsia, : PLAN: Cont mag gtt for 24 hours. Cont Procardia. BP's normal. ORTEGA present but improved since admission. Cont to closely monitor symptoms and blood pressures. Possible discharge tomorrow. (2) S/P section:
[2024-11-22] MEDS: NIFEdipine 30 MG Tablet PO (17:43)
[2024-11-23] VITALS (7 sets, daily range): BP systolic 124–137; BP diastolic 73–83; PULSE 71–85; RESP 16–18; TEMP 36.4–36.6; O2SAT 95–98
[2024-11-23] MEDS: Ibuprofen 600 MG Tablet PO ×2 (02:13→08:45)
[2024-11-23] MEDS: Acetaminophen 500 MG Tablet 1000 MG PO ×2 (06:20)
--- NOTE | 2024-11-23 08:38 | PCM.PN.OB ---
Subjective Subjective Feeling better today. Headache resolved. Swelling resolved. Reviewed BPs and symptoms to water for. Plan to discharge on Procardia Objective Data Objective Data Vital Signs: Vital Signs Temp Pulse Resp BP Pulse Ox O2 Del Method 97.9 F 75 16 124/73 H 97 Room Air 11/23/24 07:55 11/23/24 07:56 11/23/24 07:55 11/23/24 07:56 11/23/24 07:56 11/23/24 07:55 Oxygen Delivery Method Room Air Weight: 77.746 kg Body Mass Index (BMI) 30.3 Intake & Output: Intake and Output for Last 24 Hours 11/21/24 11/22/24 11/23/24 23:59 23:59 23:59 Intake Total 630 / 630 2969.0 / 2969.0 Output Total 2650 / 2650 3200 / 3200 Balance -2020 / -2020 -231.0 / -231.0 Lab / Micro Data 11/21/24 16:15 11/21/24 16:15 ROS Constitutional Constitutional: Denies fatigue, fever(s) or malaise Eyes Eyes: Denies change in vision ENT HEENT: Denies dizziness or headache(s) Cardiovascular Cardiovascular: Denies chest pain, dyspnea or lightheadedness Respiratory/Chest Respiratory/Chest: Denies cough or dyspnea Gastrointestinal Gastrointestinal: Denies change in bowel habits Genitourinary Genitourinary: Denies burning urination or genital lesions Integumentary Integumentary: Denies rash Neurologic Neurologic: Denies confusion, dizziness, headache(s), numbness or weakness Physical Exam Const alert and no apparent distress General Appearance: cooperative HEENT normocephalic Resp normal respiratory effort Extremity no calf tenderness General Extremity: edema Skin Rashes: No rashes noted Psych activity/motor behavior normal Assessment & Plan (1) Pre-eclampsia, : PLAN: Plan Discharge home with Khari. Has appointment on 11/27
--- NOTE | 2024-11-23 08:41 | PCM.DC.SUM ---
Providers Date of Admission: 11/21/24 Date of Discharge: 11/23/24 Primary Care Physician: Dr. Edwin Cooper MD Reason For Visit: POST PRE-E Diagnosis Discharge Diagnosis (1) Pre-eclampsia, : Status: Acute Code(s): O14.95 - Unspecified pre-eclampsia, complicating the puerperium Plan Discharge home with Procardia. Has appointment on 11/27 Medications at Discharge Home Medications Tablet 1 cap PO DAILY 03/22/18 Vitamin D3 1 cap PO DAILY PRN vitamin 03/22/18 ibuprofen 600 mg tablet 600 mg PO Q6H #30 tabs 11/15/24 acetaminophen 500 mg tablet (Acetaminophen Extra Strength) 1,000 mg PO Q6H PRN pain 11/21/24 cetirizine 10 mg tablet 10 mg PO DAILY 11/21/24 Hospital Course Operations None Procedures None Summary of Care Provided Minutes Spent on Discharge: 20 Physical Exam Const alert and no apparent distress General Appearance: cooperative HEENT normocephalic Resp normal respiratory effort Extremity no calf tenderness General Extremity: edema Skin Rashes: No rashes noted Psych activity/motor behavior normal Weight / BMI Weight Weight: 77.746 kg Body Mass Index (BMI) 30.3 ABG / Lab / Microbiology Data 11/21/24 16:15 11/21/24 16:15 D/C Instructions Discharge Diet: No restrictions May resume sexual activity in: 4-6 weeks Lifting Restrictions: 20 pounds Additional Activity Instructions: Nothing in the vagina for 4-6 weeks. Call your doctor if your incision/area has: Continuous Slow Oozing, Sudden Increased Bleeding, Increased Pain/ Swelling, Increased Redness and Foul Smelling Discharge Call your doctor if you observe: Fever of 101 or Higher, Using more than 1 pad per hour (for 2 hours), Shortness of breath, Dizziness and Chest pain Suture Line Care: Avoid Pulling/Pushing and Avoid Pinching/Bending DC O2, CPAP, BIPAP Needs Home O2 Discharge instructions: No Please Follow Up With: Kelly Ozuna MD Meaningful Use Info Meaningful Use Meaningful Use Diagnoses (Choose all that apply): None applicable Ischemic Stroke Statin Dosing Therapy Reference: STATIN DOSE THERAPY REFERENCE: * Patients > 75 years receive moderate or high dose statin therapy. * Patients 75 years or YOUNGER should receive HIGH intensity statin dose unless contraindicated. You will be required to document reason for non-treatment if statin daily dose does not meet guidelines. HIGH DOSE STATIN THERAPY DAILY Atorvastatin > than or = to 40 mg Rosuvastatin > than or = to 20 mg Amlodipine + Atorvastatin > than or = to 2.5/40 mg Ezetimibe + Simvastatin 10/80 mg Simvastatin 80mg Discharge Plan Admission Admit Date/Time: 11/21/24 17:00 Attending Provider: Simona Hoffman Primary Care Provider: Edwin Cooper Discharge Orders/Prescriptions Prescriptions: No Action Tablet 1 cap PO DAILY Vitamin D3 1 cap PO DAILY PRN (Reason: vitamin) Rx Instructions: 5,000 ibuprofen 600 mg Tablet 600 mg PO Q6H Qty: 30 0RF cetirizine 10 mg tablet 10 mg PO DAILY acetaminophen [Acetaminophen Extra Strength] 500 mg tablet 1,000 mg PO Q6H PRN (Reason: pain) Referrals / Follow Up: Edwin Cooper MD [Primary Care Provider] -
--- NOTE | 2024-11-23 11:39 | NURSING ---
Vital signs obtained prior to pt getting up for shower. Pt said she does not have a headache. Pt inquired about blood pressure monitoring at home. Spoke with [employer] NURSING INSTRUCTOR to get this set up prior to d/c. Informed bedside nurse Winsome of vitals, pt desire for discharge instructions and bp monitoring set up.
--- NOTE | 2024-11-23 14:03 | NURSING ---
DISCHARGE INSTRUCTIONS GIVEN AND DISCUSSED BY SILVERIO LINARES RN. ESCORTED OUT TO CAR WITH FAMILY. [place]
== END 2024-11-23 13:30 | disposition home or self-care (01) | DRG 776 ==
LOC: WPOUT 17:07 → WP 17:07
PROVIDERS: Admitting Provider Obstetrics & Gynecology; PCP Family Medicine; Referring Provider Obstetrics & Gynecology; Visit Provider Obstetrics & Gynecology
DX: O14.15 Severe pre-eclampsia, complicating the puerperium (principal); O99.893 Other specified diseases and conditions complicating puerperium; H53.8 Other visual disturbances; R03.0 Elevated blood-pressure reading, without diagnosis of hypertension
CPT/HCPCS: 36415; 82565; 82570; 84156; 84450; 84460; 84550; 85027; 99221; G0378